=== PATIENT | female | born 1955 | race Hispanic/Latino ===

== ENCOUNTER 2017-11-03 14:54 | Emergency (ER) | payer MEDICARE, OTHER ==
[~2017-11-03] VITALS: Ht 167.6 cm; Wt 108.9 kg
[2017-11-03 17:13] LABS: CLARITY,URINE CLEAR (CLEAR); COLOR,URINE YELLOW (YELLOW); LEUKOCYTE ESTERASE ,URINE NEGATIVE (NEGATIVE)
[2017-11-03 17:14] LABS: BILIRUBIN,URINE NEGATIVE (NEGATIVE); KETONES,URINE NEGATIVE (NEGATIVE); NITRITE,URINE NEGATIVE (NEGATIVE); PROTEIN,URINE DIPSTICK NEGATIVE (NEGATIVE); URINE UROBILINOGEN 0.2 mg/dL (0.2 - 1)
[2017-11-03 17:23] LABS: BACTERIA,URINE RARE /HPF; EPITHELIAL CELLS,URINE FEW /LPF
[2017-11-03 17:51] LABS: BASOPHILS # (AUTO) 0.1 (0.0-0.1); BASOPHILS % 1.8 % (0.0-1.0); EOSINOPHILS # (AUTO) 0.2 (0.0-0.4); EOSINOPHILS % 3.3 % (0.0-6.0); HEMATOCRIT 34.5 % (34.2-44.1); HEMOGLOBIN 11.3 g/dL (12.0-16.0); LYMPHOCYTES # (AUTO) 1.9 (1.0-3.2); LYMPHOCYTES % 29.2 % (18.0-39.1); MEAN CORPUSCULAR HEMOGLOBIN 29.4 pg (28-32); MEAN CORPUSCULAR HGB CONC 32.8 g/dL (31-35); MEAN CORPUSCULAR VOLUME 89.8 fL (81-99); MONOCYTES # (AUTO) 0.7 (0.2-0.8); MONOCYTES % 10.7 % (4.4-11.3); NEUTROPHILS # (AUTO) 3.6 (2.1-6.9); NEUTROPHILS % 54.5 % (38.7-80.0); PLATELET COUNT 282 x10e3/uL (140-360); RED BLOOD COUNT 3.84 x10e6/uL (3.6-5.1); RED CELL DISTRIBUTION WIDTH 14.1 % (11.7-14.4)
[2017-11-03 18:08] LABS: ALANINE AMINOTRANSFERASE 8 IU/L (0-55); ALBUMIN 3.2 g/dL (3.5-5.0); ALBUMIN/GLOBULIN RATIO 0.6 (0.8-2.0); ALKALINE PHOSPHATASE 83 IU/L (40-150); ANION GAP 17.1 mmol/L (8-16); BLOOD UREA NITROGEN 16 mg/dL (7-26); BUN/CREATININE RATIO 19 (6-25); CALCIUM 9.7 mg/dL (8.4-10.2); CARBON DIOXIDE 28 mmol/L (22-29); CHLORIDE 103 mmol/L (98-107); CREATININE, SERUM 0.85 mg/dL (0.57-1.11); EST GLOMERULAR FILTRATION RATE > 60 ML/MIN (60-); GLUCOSE 141 mg/dL (74-118); POTASSIUM 4.1 mmol/L (3.5-5.1); SODIUM 144 mmol/L (136-145)
--- NOTE | 2017-11-03 18:15 | Diagnostic Imaging Report ---
Examination: Single AP view of the chest. COMPARISON: None. INDICATION: Vaginal discharge, cough IMPRESSION: 1. Lines and Tubes: None 2. Mild bilateral interstitial opacities suggesting mild interstitial edema. No consolidation or effusion.. 3. Enlarged cardiac silhouette. Central pulmonary venous congestion. 4. No acute bony abnormalities. Signed by: Dr. Cecil Osborn M.D. on 11/03/2017 6:12 PM
[2017-11-03] MEDS: FUROSEMIDE INJ 10 MG/ML 2 ML VIAL IV ONE (19:39)
[2017-11-03] MEDS: FLUCONAZOLE 100 MG TAB PO ONE (19:39)
[2017-11-03 20:00] VITALS: BP 145/61
== END 2017-11-03 20:07 | disposition home or self-care (01) ==
LOC: ER 14:54
DX: I50.22 Chronic systolic (congestive) heart failure (principal); N89.8 Other specified noninflammatory disorders of vagina
CPT/HCPCS: 36415; 71045; 80053; 81001; 83880; 85025; 87086; 99284; J1940

== ENCOUNTER 2020-07-12 19:00 | Observation (INO) | payer MEDICARE, OTHER ==
[~2020-07-12] VITALS: Ht 167.6 cm; Wt 108.9 kg
[2020-07-12] MEDS ORDERED: ASPIRIN 81 MG CHEW TAB PO ONE (19:15)
[2020-07-12 19:57] LABS: BASOPHILS # (AUTO) 0.1 (0.0-0.1); BASOPHILS % 0.7 % (0.0-1.0); EOSINOPHILS # (AUTO) 0.1 (0.0-0.4); HEMATOCRIT 30.5 % (34.2-44.1); HEMOGLOBIN 9.6 g/dL (12.0-16.0); LYMPHOCYTES # (AUTO) 2.1 (1.0-3.2); LYMPHOCYTES % 22.7 % (18.0-39.1); MEAN CORPUSCULAR HEMOGLOBIN 27.6 pg (28-32); MEAN CORPUSCULAR HGB CONC 31.5 g/dL (31-35); MEAN CORPUSCULAR VOLUME 87.6 fL (81-99); MONOCYTES # (AUTO) 0.8 (0.2-0.8); MONOCYTES % 8.4 % (4.4-11.3); NEUTROPHILS # (AUTO) 6.1 (2.1-6.9); NEUTROPHILS % 66.8 % (38.7-80.0); PLATELET COUNT 282 x10e3/uL (140-360); RED BLOOD COUNT 3.48 x10e6/uL (3.6-5.1); RED CELL DISTRIBUTION WIDTH 14.8 % (11.7-14.4)
[2020-07-12 20:00] LABS: CLARITY,URINE SL CLOUDY (CLEAR); COLOR,URINE YELLOW (YELLOW)
[2020-07-12 20:01] LABS: KETONES,URINE NEGATIVE (NEGATIVE); LEUKOCYTE ESTERASE ,URINE SMALL (NEGATIVE); NITRITE,URINE POSITIVE (NEGATIVE); PROTEIN,URINE DIPSTICK 1+ (NEGATIVE); URINE UROBILINOGEN 0.2 mg/dL (0.2 - 1)
[2020-07-12 20:10] LABS: BACTERIA,URINE MANY /HPF
[2020-07-12 20:16] LABS: ALBUMIN/GLOBULIN RATIO 0.5 (0.8-2.0); ANION GAP 15.3 mmol/L (8-16); CALCIUM 8.9 mg/dL (8.4-10.2); CREATININE, SERUM 0.98 mg/dL (0.57-1.11); POTASSIUM 3.3 mmol/L (3.5-5.1)
[2020-07-12 20:22] LABS: CREATINE KINASE MB 0.4 ng/mL (0-5.0)
[2020-07-12 23:20] VITALS: BP 138/55
[2020-07-12 23:30] VITALS: BP 138/55
[2020-07-12] MEDS ORDERED: SPIRONOLACTONE50 MG (23:52)
[2020-07-13] VITALS (8 sets, daily range): BP systolic 128–148; BP diastolic 48–85
[2020-07-13] MEDS ORDERED: DOXYCYCLINE HY100 MG (01:21)
[2020-07-13] MEDS ORDERED: LEVEMIR FL100 UNIT/1 (01:21)
[2020-07-13] MEDS ORDERED: LEVOCETIRIZINE D5 MG (01:21)
[2020-07-13] MEDS ORDERED: PREGABALIN75 MG (01:21)
[2020-07-13] MEDS ORDERED: AMLODIPINE BESYL5 MG (01:21)
[2020-07-13] MEDS ORDERED: INSULIN LI100 UNIT/2 (01:21)
[2020-07-13] MEDS ORDERED: NOVOLOG100 UNITS1 (01:21)
[2020-07-13] MEDS ORDERED: FUROSEMIDE40 MG (01:21)
[2020-07-13 06:32] LABS: BASOPHILS # (AUTO) 0.1 (0.0-0.1); EOSINOPHILS # (AUTO) 0.2 (0.0-0.4); EOSINOPHILS % 2.7 % (0.0-6.0); HEMATOCRIT 30.8 % (34.2-44.1); HEMOGLOBIN 9.8 g/dL (12.0-16.0); LYMPHOCYTES # (AUTO) 1.4 (1.0-3.2); LYMPHOCYTES % 23.7 % (18.0-39.1); MEAN CORPUSCULAR HEMOGLOBIN 27.6 pg (28-32); MEAN CORPUSCULAR HGB CONC 31.8 g/dL (31-35); MEAN CORPUSCULAR VOLUME 86.8 fL (81-99); MONOCYTES # (AUTO) 0.4 (0.2-0.8); MONOCYTES % 7.4 % (4.4-11.3); NEUTROPHILS # (AUTO) 3.9 (2.1-6.9); NEUTROPHILS % 64.9 % (38.7-80.0); PLATELET COUNT 249 x10e3/uL (140-360); RED BLOOD COUNT 3.55 x10e6/uL (3.6-5.1); RED CELL DISTRIBUTION WIDTH 14.6 % (11.7-14.4)
[2020-07-13 07:12] LABS: ANION GAP 12.1 mmol/L (8-16); BLOOD UREA NITROGEN 13 mg/dL (7-26); BUN/CREATININE RATIO 15 (6-25); CALCIUM 8.6 mg/dL (8.4-10.2); CARBON DIOXIDE 27 mmol/L (22-29); CHLORIDE 105 mmol/L (98-107); CREATININE, SERUM 0.89 mg/dL (0.57-1.11); EST GLOMERULAR FILTRATION RATE > 60 ML/MIN (60-); GLUCOSE 144 mg/dL (74-118); POTASSIUM 3.1 mmol/L (3.5-5.1); SODIUM 141 mmol/L (136-145)
[2020-07-13 07:42] LABS: CREATINE KINASE MB 1.2 ng/mL (0-5.0)
[2020-07-13] MEDS: FUROSEMIDE 40 MG TAB PO SCH (08:56)
[2020-07-13] MEDS: AMLODIPINE BESYLATE 5 MG TAB PO SCH (08:56)
[2020-07-13] MEDS: PREGABALIN 50 MG CAP PO SCH ×2 (08:58→16:26)
[2020-07-13] MEDS ORDERED: DEXTROSE 50% SYRINGE 50 ML IV PRN (09:45)
[2020-07-13] MEDS: LISINOPRIL 10 MG TAB PO SCH (10:20)
[2020-07-13] MEDS: ASPIRIN 81 MG CHEW TAB PO SCH (10:22)
[2020-07-13] MEDS ORDERED: POTASSIUM CHLORIDE 20 MEQ TAB CR PO ONE (10:45)
[2020-07-13] MEDS: INSULIN REGULAR, HUMAN 100 UNIT/1 ML 3ML VIAL SQ SCH ×3 (11:30→20:40)
[2020-07-13 13:02] LABS: CREATINE KINASE MB 1.6 ng/mL (0-5.0)
[2020-07-13 19:28] LABS: ANION GAP 13.6 mmol/L (8-16); BLOOD UREA NITROGEN 13 mg/dL (7-26); BUN/CREATININE RATIO 15 (6-25); CALCIUM 8.6 mg/dL (8.4-10.2); CARBON DIOXIDE 28 mmol/L (22-29); CHLORIDE 104 mmol/L (98-107); CREATININE, SERUM 0.85 mg/dL (0.57-1.11); EST GLOMERULAR FILTRATION RATE > 60 ML/MIN (60-); GLUCOSE 138 mg/dL (74-118); POTASSIUM 3.6 mmol/L (3.5-5.1); SODIUM 142 mmol/L (136-145)
[2020-07-13 19:35] LABS: CREATINE KINASE MB 1.6 ng/mL (0-5.0)
[2020-07-13] MEDS ORDERED: ATORVASTATIN 40 MG TAB PO SCH (21:00)
[2020-07-14] VITALS: BP 143/63
[2020-07-14 04:00] VITALS: BP 162/62
[2020-07-14] MEDS: INSULIN REGULAR, HUMAN 100 UNIT/1 ML 3ML VIAL SQ SCH ×2 (07:30→11:30)
[2020-07-14 07:45] VITALS: BP 152/63
[2020-07-14 07:55] LABS: BASOPHILS # (AUTO) 0.1 (0.0-0.1); BASOPHILS % 1.1 % (0.0-1.0); EOSINOPHILS # (AUTO) 0.2 (0.0-0.4); EOSINOPHILS % 2.7 % (0.0-6.0); HEMATOCRIT 32.1 % (34.2-44.1); LYMPHOCYTES # (AUTO) 1.2 (1.0-3.2); LYMPHOCYTES % 19.7 % (18.0-39.1); MEAN CORPUSCULAR HEMOGLOBIN 27.2 pg (28-32); MEAN CORPUSCULAR HGB CONC 31.2 g/dL (31-35); MEAN CORPUSCULAR VOLUME 87.5 fL (81-99); MONOCYTES # (AUTO) 0.4 (0.2-0.8); MONOCYTES % 6.6 % (4.4-11.3); NEUTROPHILS # (AUTO) 4.3 (2.1-6.9); NEUTROPHILS % 69.4 % (38.7-80.0); PLATELET COUNT 238 x10e3/uL (140-360); RED BLOOD COUNT 3.67 x10e6/uL (3.6-5.1); RED CELL DISTRIBUTION WIDTH 14.8 % (11.7-14.4)
[2020-07-14 08:00] VITALS: BP 152/63
[2020-07-14] MEDS: ASPIRIN 81 MG CHEW TAB PO SCH (08:05)
[2020-07-14] MEDS: FUROSEMIDE 40 MG TAB PO SCH (08:05)
[2020-07-14] MEDS: PREGABALIN 50 MG CAP PO SCH (08:05)
[2020-07-14] MEDS: AMLODIPINE BESYLATE 5 MG TAB PO SCH (08:05)
[2020-07-14] MEDS: LISINOPRIL 10 MG TAB PO SCH (08:06)
[2020-07-14 08:09] LABS: ANION GAP 15.5 mmol/L (8-16); BLOOD UREA NITROGEN 11 mg/dL (7-26); BUN/CREATININE RATIO 14 (6-25); CALCIUM 8.6 mg/dL (8.4-10.2); CARBON DIOXIDE 26 mmol/L (22-29); CHLORIDE 106 mmol/L (98-107); EST GLOMERULAR FILTRATION RATE > 60 ML/MIN (60-); GLUCOSE 146 mg/dL (74-118); POTASSIUM 3.5 mmol/L (3.5-5.1); SODIUM 144 mmol/L (136-145)
[2020-07-14 12:00] VITALS: BP 135/51
[2020-07-14 16:00] VITALS: BP 142/53
[2020-07-15] MEDS ORDERED: KCL 20 MEQ PACKET/ ORAL SOLN PO SCH (09:00)
== END 2020-07-14 16:07 | disposition home health service (06) ==
LOC: ER 20:10 → ERHOLD 21:35 → MED/SURG3 23:30
PROVIDERS: ADMIT Internal Medicine; ATTEND Internal Medicine
DX: I11.0 Hypertensive heart disease with heart failure (principal); I69.351 Hemiplegia and hemiparesis following cerebral infarction affecting right dominant side; E11.9 Type 2 diabetes mellitus without complications; E66.01 Morbid (severe) obesity due to excess calories; Z68.38 Body mass index [BMI] 38.0-38.9, adult; G31.84 Mild cognitive impairment of uncertain or unknown etiology; I50.33 Acute on chronic diastolic (congestive) heart failure; Z20.822 Contact with and (suspected) exposure to COVID-19
CPT/HCPCS: 36415 ×3; 70450; 71045; 80048 ×2; 80053; 81001; 82550 ×2; 82553 ×2; 82948 ×3; 83605; 83735; 83880; 84484 ×2; 85025 ×3; 87040; 92526; 92610; 93005; 93306; 97110 ×2; 97139 ×2; 97162; 97530; 99251; 99284; G0378 ×3; J1817; U0002

== ENCOUNTER 2020-07-31 08:29 | Inpatient (IN) | payer MEDICARE ==
[~2020-07-31] VITALS: Ht 167.6 cm; Wt 95.3 kg
[~2020-07-31 08:29] MED LIST: AMLODIPINE BESYL5 MG; DOXYCYCLINE HY100 MG; FUROSEMIDE40 MG; INSULIN LI100 UNIT/2; LEVEMIR FL100 UNIT/1; LEVOCETIRIZINE D5 MG; NOVOLOG100 UNITS1; PREGABALIN75 MG; SPIRONOLACTONE50 MG
[2020-07-31] MEDS ORDERED: ASPIRIN 81 MG CHEW TAB PO ONE (09:30)
[2020-07-31 09:53] LABS: INR 1.06; PROTHROMBIN TIME 14.5 seconds (11.9-14.5)
[2020-07-31 10:00] LABS: ALBUMIN 3.5 g/dL (3.5-5.0); ALBUMIN/GLOBULIN RATIO 0.6 (0.8-2.0); ANION GAP 19.7 mmol/L (8-16); CALCIUM 9.8 mg/dL (8.4-10.2); CREATININE, SERUM 1.36 mg/dL (0.57-1.11); POTASSIUM 3.7 mmol/L (3.5-5.1)
[2020-07-31 10:12] LABS: BASOPHILS % 0.3 % (0.0-1.0); HEMATOCRIT 33.5 % (34.2-44.1); HEMOGLOBIN 10.5 g/dL (12.0-16.0); LYMPHOCYTES # (AUTO) 1.1 (1.0-3.2); LYMPHOCYTES % 7.3 % (18.0-39.1); MEAN CORPUSCULAR HEMOGLOBIN 27.6 pg (28-32); MEAN CORPUSCULAR HGB CONC 31.3 g/dL (31-35); MEAN CORPUSCULAR VOLUME 88.2 fL (81-99); MONOCYTES # (AUTO) 0.9 (0.2-0.8); MONOCYTES % 5.6 % (4.4-11.3); NEUTROPHILS # (AUTO) 13.2 (2.1-6.9); NEUTROPHILS % 86.3 % (38.7-80.0); PLATELET COUNT 335 x10e3/uL (140-360); RED CELL DISTRIBUTION WIDTH 14.6 % (11.7-14.4)
[2020-07-31 11:50] LABS: CLARITY,URINE CLEAR (CLEAR); COLOR,URINE YELLOW (YELLOW); LEUKOCYTE ESTERASE ,URINE NEGATIVE (NEGATIVE); NITRITE,URINE NEGATIVE (NEGATIVE); PROTEIN,URINE DIPSTICK 1+ (NEGATIVE)
[2020-07-31 11:51] LABS: KETONES,URINE NEGATIVE (NEGATIVE); URINE UROBILINOGEN 0.2 mg/dL (0.2 - 1)
[2020-07-31 12:00] LABS: RBC,URINE 0-5 /HPF (0-5); WBC,URINE (MAN) 0-5 /HPF (0-5)
[2020-07-31 12:01] LABS: BACTERIA,URINE RARE /HPF; EPITHELIAL CELLS,URINE RARE /LPF; TRANSITIONAL EPI CELLS,URINE RARE
[2020-07-31] MEDS ORDERED: NOVOLOG100 UNIT/1 SC (16:18)
[2020-07-31] MEDS ORDERED: CLOTRIMAZOLE-BE15 GM TOP (16:18)
[2020-07-31] MEDS ORDERED: ALDACTONE50 MG PO (16:18)
[2020-07-31] MEDS ORDERED: LYRICA75 MG PO (16:18)
[2020-07-31] MEDS ORDERED: LISINOPRIL2.5 MG PO (16:18)
[2020-07-31] MEDS ORDERED: POTASSIUM CHLO10 ME1 PO (16:18)
[2020-07-31] MEDS ORDERED: NIFEDIPINE ER30 M1 PO (16:18)
[2020-07-31] MEDS ORDERED: ASPIRIN81 MG PO (16:18)
[2020-07-31] MEDS ORDERED: LEVEMIR FL100 UNIT/1 SC (16:18)
[2020-07-31] MEDS ORDERED: WOMEN'S DAILY1 EACH PO (16:18)
[2020-07-31] MEDS ORDERED: BENZONATATE100 MG PO (16:18)
[2020-07-31] MEDS ORDERED: JARDIANCE10 MG PEG (16:18)
[2020-07-31] MEDS ORDERED: SERTRALINE HCL100 MG PO (16:18)
[2020-07-31] MEDS ORDERED: FLONASE ALLERG9.9 ML INH (16:18)
[2020-07-31] MEDS ORDERED: MUPIROCIN22 GM TOP (16:18)
[2020-07-31] MEDS ORDERED: METFORMIN HCL500 MG PO ×2 (16:18)
[2020-07-31] MEDS ORDERED: LEVOCETIRIZINE D5 MG PO (16:18)
[2020-07-31] MEDS ORDERED: LASIX80 MG PO (16:18)
[2020-07-31] MEDS ORDERED: AMLODIPINE BESYL5 MG PO (16:18)
[2020-07-31] MEDS ORDERED: SENNA LAX8.6 MG PO (16:18)
[2020-07-31] MEDS ORDERED: ACETAMINOPHEN325 M1 PO (16:18)
[2020-07-31] MEDS ORDERED: OMEPRAZOLE40 MG PO (16:18)
[2020-07-31] MEDS ORDERED: ATORVASTATIN CA20 MG PO (16:18)
[2020-07-31] MEDS ORDERED: FUROSEMIDE INJ 10 MG/ML 4 ML VIAL IV ONE (16:45)
[2020-07-31 17:27] VITALS: BP 150/52
[2020-07-31 18:11] VITALS: BP 150/52
[2020-07-31 20:00] VITALS: BP 158/55
[2020-07-31] MEDS ORDERED: DEXTROSE 50% SYRINGE 50 ML IV PRN (20:15)
[2020-07-31] MEDS ORDERED: FUROSEMIDE 40 MG TAB PO SCH (21:00)
[2020-07-31 21:05] LABS: ANION GAP 18.8 mmol/L (8-16); CALCIUM 10.2 mg/dL (8.4-10.2); CREATININE, SERUM 1.35 mg/dL (0.57-1.11); POTASSIUM 4.8 mmol/L (3.5-5.1)
[2020-07-31] MEDS ORDERED: SODIUM CHLORIDE 0.9% 500ML 500 ML IV ONE (21:30)
[2020-07-31 21:46] VITALS: BP 158/55
[2020-07-31] MEDS: ATORVASTATIN 40 MG TAB PO SCH (22:10)
[2020-07-31] MEDS: NIFEDIPINE CR 30 MG TAB PO SCH (22:10)
[2020-07-31] MEDS: INSULIN GLARGINE 100 UNITS/ML VIAL SQ SCH (22:10)
[2020-07-31] MEDS: INSULIN LISPRO 100 UNIT/1 ML 3ML VIAL SQ SCH (22:10)
[2020-08-01] VITALS (11 sets, daily range): BP systolic 116–154; BP diastolic 53–64
[2020-08-01] MEDS ORDERED: CALCIUM CARBONATE 500 MG CHEWABLE TABS PO ONE (02:00)
[2020-08-01 05:30] LABS: BASOPHILS # (AUTO) 0.1 (0.0-0.1); BASOPHILS % 0.5 % (0.0-1.0); EOSINOPHILS % 0.1 % (0.0-6.0); HEMATOCRIT 33.7 % (34.2-44.1); HEMOGLOBIN 10.4 g/dL (12.0-16.0); LYMPHOCYTES # (AUTO) 1.7 (1.0-3.2); MEAN CORPUSCULAR HEMOGLOBIN 26.9 pg (28-32); MEAN CORPUSCULAR HGB CONC 30.9 g/dL (31-35); MEAN CORPUSCULAR VOLUME 87.1 fL (81-99); MONOCYTES # (AUTO) 1.1 (0.2-0.8); MONOCYTES % 6.7 % (4.4-11.3); NEUTROPHILS # (AUTO) 13.9 (2.1-6.9); NEUTROPHILS % 81.9 % (38.7-80.0); PLATELET COUNT 281 x10e3/uL (140-360); RED BLOOD COUNT 3.87 x10e6/uL (3.6-5.1); RED CELL DISTRIBUTION WIDTH 14.8 % (11.7-14.4)
[2020-08-01 05:41] LABS: INR 1.18; PROTHROMBIN TIME 15.8 seconds (11.9-14.5)
[2020-08-01 05:42] LABS: PARTIAL THROMBOPLASTIN TIME 31.5 seconds (23.8-35.5)
[2020-08-01 05:49] LABS: ANION GAP 15.1 mmol/L (8-16); CALCIUM 9.3 mg/dL (8.4-10.2); CREATININE, SERUM 1.31 mg/dL (0.57-1.11)
[2020-08-01 05:54] LABS: POTASSIUM 3.1 mmol/L (3.5-5.1)
[2020-08-01 06:14] LABS: CHOL/HDL RATIO 4.2 (3.0-3.6)
[2020-08-01] MEDS: INSULIN LISPRO 100 UNIT/1 ML 3ML VIAL SQ SCH ×4 (07:30→21:02)
[2020-08-01] MEDS: PANTOPRAZOLE SOD 40 MG TABEC PO SCH (08:12)
[2020-08-01] MEDS: ASPIRIN 81 MG CHEW TAB PO SCH (08:12)
[2020-08-01] MEDS: PREGABALIN 75 MG CAP PO SCH ×2 (08:12→17:00)
[2020-08-01] MEDS: AMLODIPINE BESYLATE 5 MG TAB PO SCH ×2 (08:13→17:10)
[2020-08-01] MEDS: NIFEDIPINE CR 30 MG TAB PO SCH ×2 (08:14→21:03)
[2020-08-01] MEDS: SERTRALINE HCL 100 MG TAB PO SCH (08:14)
[2020-08-01] MEDS ORDERED: LISINOPRIL 2.5 MG TAB PO SCH (09:00)
[2020-08-01] MEDS ORDERED: CEFTRIAXONE SOD 1 GM/50 ML BAG IV SCH (14:00)
[2020-08-01] MEDS ORDERED: POTASSIUM CHLORIDE 20 MEQ TAB CR PO ONE (14:30)
[2020-08-01] MEDS ORDERED: CEFTRIAXONE SOD 1 GM in SODIUM CHLORIDE 0.9% 50ML 50 ML IV SCH (14:30)
[2020-08-01] MEDS ORDERED: SODIUM CHLORIDE 0.9% 1000ML 1,000 ML ONE (14:57)
[2020-08-01] MEDS: HEPARIN SOD (PORCINE) 5,000 UNIT/ML VIAL SC SCH ×2 (15:17→21:03)
[2020-08-01 16:08] LABS: MAGNESIUM 1.6 MG/DL (1.3-2.1)
[2020-08-01 16:10] LABS: ALBUMIN/GLOBULIN RATIO 0.5 (0.8-2.0); ANION GAP 15.6 mmol/L (8-16); CALCIUM 9.1 mg/dL (8.4-10.2); CREATININE, SERUM 1.38 mg/dL (0.57-1.11); POTASSIUM 3.6 mmol/L (3.5-5.1)
[2020-08-01 16:18] LABS: ABG HCO3 29 mmol/L (22-26); ABG PCO2 41 mmHg (35-45); ABG PH 7.44 (7.35-7.45); ABG PO2 62 mmHg (80-105); ABG TCO2 30
[2020-08-01 16:30] LABS: THYROID STIMULATING HORMONE 1.222 uIU/mL (0.350-4.940)
[2020-08-01] MEDS: SODIUM CHLORIDE 0.9% 1000ML 1,000 ML IV SCH (17:48)
[2020-08-01] MEDS: ACETYLCYSTEINE 200 MG/ML 4ML VIAL PO SCH (17:48)
[2020-08-01] MEDS: ATORVASTATIN 40 MG TAB PO SCH (20:55)
[2020-08-01] MEDS: INSULIN GLARGINE 100 UNITS/ML VIAL SQ SCH (21:03)
[2020-08-01] MEDS ORDERED: SIMETHICONE 80 MG CHEW PO PRN (21:30)
[2020-08-01] MEDS ORDERED: BISACODYL 10 MG SUPP PR ONE (21:30)
[2020-08-01] MEDS: ACETAMINOPHEN 325 MG/10 ML UDC PO PRN (21:38)
[2020-08-02] VITALS (9 sets, daily range): BP systolic 122–141; BP diastolic 44–60
[2020-08-02 05:43] LABS: BASOPHILS # (AUTO) 0.1 (0.0-0.1); BASOPHILS % 0.5 % (0.0-1.0); EOSINOPHILS # (AUTO) 0.1 (0.0-0.4); EOSINOPHILS % 0.3 % (0.0-6.0); HEMATOCRIT 31.6 % (34.2-44.1); HEMOGLOBIN 9.7 g/dL (12.0-16.0); LYMPHOCYTES # (AUTO) 1.7 (1.0-3.2); MEAN CORPUSCULAR HEMOGLOBIN 27.1 pg (28-32); MEAN CORPUSCULAR HGB CONC 30.7 g/dL (31-35); MEAN CORPUSCULAR VOLUME 88.3 fL (81-99); MONOCYTES % 5.1 % (4.4-11.3); NEUTROPHILS # (AUTO) 16.2 (2.1-6.9); NEUTROPHILS % 83.8 % (38.7-80.0); PLATELET COUNT 248 x10e3/uL (140-360); RED BLOOD COUNT 3.58 x10e6/uL (3.6-5.1); RED CELL DISTRIBUTION WIDTH 14.6 % (11.7-14.4)
[2020-08-02] MEDS: HEPARIN SOD (PORCINE) 5,000 UNIT/ML VIAL SC SCH ×3 (06:12→19:41)
[2020-08-02 06:14] LABS: ALBUMIN 2.9 g/dL (3.5-5.0); ALBUMIN/GLOBULIN RATIO 0.5 (0.8-2.0); ANION GAP 17.4 mmol/L (8-16); CREATININE, SERUM 1.33 mg/dL (0.57-1.11); MAGNESIUM 1.6 MG/DL (1.3-2.1); PHOSPHORUS 2.9 MG/DL (2.3-4.7); POTASSIUM 3.4 mmol/L (3.5-5.1)
[2020-08-02 07:24] LABS: CALCIUM IONIZED 1.2 mmol/L (1.09-1.30)
[2020-08-02] MEDS: PANTOPRAZOLE SOD 40 MG TABEC PO SCH (08:18)
[2020-08-02] MEDS: ACETYLCYSTEINE 200 MG/ML 4ML VIAL PO SCH ×2 (08:18→17:08)
[2020-08-02] MEDS: ASPIRIN 81 MG CHEW TAB PO SCH (08:20)
[2020-08-02] MEDS: PREGABALIN 75 MG CAP PO SCH ×3 (08:20→17:41)
[2020-08-02] MEDS: POLYETHYLENE GLYCOL 3350 17 GM PACK PO SCH (08:20)
[2020-08-02] MEDS: AMLODIPINE BESYLATE 5 MG TAB PO SCH ×2 (08:21→17:00)
[2020-08-02] MEDS: SERTRALINE HCL 100 MG TAB PO SCH (08:22)
[2020-08-02] MEDS: NIFEDIPINE CR 30 MG TAB PO SCH ×2 (08:22→20:39)
[2020-08-02] MEDS: CYANOCOBALAMIN 1,000 MCG TAB PO SCH (08:22)
[2020-08-02] MEDS ORDERED: ACETYLCYSTEINE 20% INHAL SOLN 30 ML VIAL PO SCH (09:00)
[2020-08-02] MEDS: INSULIN LISPRO 100 UNIT/1 ML 3ML VIAL SQ SCH ×4 (09:07→20:02)
[2020-08-02] MEDS ORDERED: POTASSIUM CHLORIDE 20 MEQ TAB CR PO ONE (10:30)
[2020-08-02] MEDS ORDERED: SODIUM CHLORIDE 0.9% 100 ML ONE (11:01)
[2020-08-02] MEDS ORDERED: IOPAMIDOL 370 MG/ML 200 ML INFUS..BTL INJ ONE (11:01)
[2020-08-02] MEDS: SODIUM CHLORIDE 0.9% 1000ML 1,000 ML IV SCH (11:08)
[2020-08-02] MEDS: CEFEPIME HCL 1GM 1 GM in SODIUM CHLORIDE 0.9% 50ML 50 ML IV SCH (13:04)
[2020-08-02] MEDS: VANCOMYCIN 750MG/NS 150ML IVPB 150 ML IV SCH ×2 (13:04→19:46)
[2020-08-02] MEDS: ACETAMINOPHEN 325 MG/10 ML UDC PO PRN (15:35)
[2020-08-02] MEDS ORDERED: MAGNESIUM SULFATE 2GM/50ML 50 ML IV ONE (15:45)
[2020-08-02] MEDS: METRONIDAZOLE 500MG/NS 100ML 100 ML IV SCH (17:07)
[2020-08-02] MEDS: ATORVASTATIN 40 MG TAB PO SCH (19:41)
[2020-08-02] MEDS: INSULIN GLARGINE 100 UNITS/ML VIAL SQ SCH (20:04)
[2020-08-02] MEDS ORDERED: ACETAMINOPHEN 1000 MG/100 ML IV PRN (20:15)
[2020-08-02] MEDS ORDERED: HYDROCODONE/APAP 5MG-325MG TAB PO ONE (20:15)
[2020-08-03] VITALS (7 sets, daily range): BP systolic 104–135; BP diastolic 45–55
[2020-08-03] MEDS: METRONIDAZOLE 500MG/NS 100ML 100 ML IV SCH ×3 (02:44→17:00)
[2020-08-03] MEDS: HEPARIN SOD (PORCINE) 5,000 UNIT/ML VIAL SC SCH (04:22)
[2020-08-03 06:30] LABS: BASOPHILS # (AUTO) 0.1 (0.0-0.1); BASOPHILS % 0.5 % (0.0-1.0); EOSINOPHILS # (AUTO) 0.1 (0.0-0.4); EOSINOPHILS % 0.6 % (0.0-6.0); HEMATOCRIT 27.6 % (34.2-44.1); HEMOGLOBIN 8.5 g/dL (12.0-16.0); LYMPHOCYTES # (AUTO) 1.4 (1.0-3.2); MEAN CORPUSCULAR HEMOGLOBIN 27.2 pg (28-32); MEAN CORPUSCULAR HGB CONC 30.8 g/dL (31-35); MEAN CORPUSCULAR VOLUME 88.2 fL (81-99); MONOCYTES # (AUTO) 0.9 (0.2-0.8); MONOCYTES % 5.8 % (4.4-11.3); NEUTROPHILS # (AUTO) 12.7 (2.1-6.9); NEUTROPHILS % 82.3 % (38.7-80.0); PLATELET COUNT 241 x10e3/uL (140-360); RED BLOOD COUNT 3.13 x10e6/uL (3.6-5.1); RED CELL DISTRIBUTION WIDTH 14.8 % (11.7-14.4)
[2020-08-03 06:50] LABS: ALBUMIN 2.4 g/dL (3.5-5.0); ALBUMIN/GLOBULIN RATIO 0.5 (0.8-2.0); ANION GAP 15.2 mmol/L (8-16); CALCIUM 8.7 mg/dL (8.4-10.2); CREATININE, SERUM 1.49 mg/dL (0.57-1.11); POTASSIUM 3.2 mmol/L (3.5-5.1)
[2020-08-03] MEDS: INSULIN LISPRO 100 UNIT/1 ML 3ML VIAL SQ SCH ×4 (08:00→21:00)
[2020-08-03] MEDS: PANTOPRAZOLE SOD 40 MG TABEC PO SCH (08:03)
[2020-08-03] MEDS: SERTRALINE HCL 100 MG TAB PO SCH (08:04)
[2020-08-03] MEDS: AMLODIPINE BESYLATE 5 MG TAB PO SCH (08:04)
[2020-08-03] MEDS: POLYETHYLENE GLYCOL 3350 17 GM PACK PO SCH (08:04)
[2020-08-03] MEDS: ASPIRIN 81 MG CHEW TAB PO SCH (08:04)
[2020-08-03] MEDS: PREGABALIN 75 MG CAP PO SCH ×2 (08:04→17:00)
[2020-08-03] MEDS: CYANOCOBALAMIN 1,000 MCG TAB PO SCH (08:04)
[2020-08-03] MEDS: ACETYLCYSTEINE 200 MG/ML 4ML VIAL PO SCH (08:10)
[2020-08-03] MEDS: NIFEDIPINE CR 30 MG TAB PO SCH ×2 (08:10→21:00)
[2020-08-03] MEDS ORDERED: TICAGRELOR 90 MG TABLET PO SCH (09:15)
[2020-08-03] MEDS: VANCOMYCIN 750MG/NS 150ML IVPB 150 ML IV SCH ×2 (09:47→21:04)
[2020-08-03] MEDS ORDERED: POTASSIUM CHLORIDE 20 MEQ TAB CR PO ONE (11:00)
[2020-08-03] MEDS: CEFEPIME HCL 1GM 1 GM in SODIUM CHLORIDE 0.9% 50ML 50 ML IV SCH (11:16)
[2020-08-03] MEDS ORDERED: SEVOFLURANE INHAL SOLN 250 ML PEN BTL ONE (13:07)
[2020-08-03] MEDS ORDERED: NEOSTIGMINE 1 MG/ML 10ML VIAL ONE (13:07)
[2020-08-03] MEDS ORDERED: PROPOFOL IV EMULSION 10 MG/ML 20 ML VIAL ONE (13:07)
[2020-08-03] MEDS ORDERED: LIDOCAINE HCL 2% JELLY 5 ML TUBE ONE (13:07)
[2020-08-03] MEDS ORDERED: ROCURONIUM BROMIDE 10 MG/ML 5ML VIAL IV ONE (13:07)
[2020-08-03] MEDS ORDERED: ONDANSETRON HCL INJ 2MG/ML 2ML 2 MG/ML VIAL ONE (13:07)
[2020-08-03] MEDS ORDERED: GLYCOPYRROLATE INJ 0.2 MG/ML VIAL ONE (13:07)
[2020-08-03] MEDS ORDERED: BUPIVACAINE 0.25% 30ML SDV ONE (13:41)
[2020-08-03] MEDS ORDERED: ACETAMINOPHEN 1000 MG/100 ML 100 ML IV ONE (16:14)
[2020-08-03] MEDS: SODIUM CHLORIDE 0.9% 1000ML 1,000 ML IV SCH (18:38)
[2020-08-03] MEDS: INSULIN GLARGINE 100 UNITS/ML VIAL SQ SCH (21:00)
[2020-08-03] MEDS: HYDROMORPHONE 1MG/1ML INJ IV PRN (21:17)
[2020-08-04] VITALS (7 sets, daily range): BP systolic 120–136; BP diastolic 46–79
[2020-08-04] MEDS: METRONIDAZOLE 500MG/NS 100ML 100 ML IV SCH ×3 (00:08→16:40)
[2020-08-04] MEDS: ACETAMINOPHEN 325 MG TAB PO PRN ×2 (01:15→21:17)
[2020-08-04 06:20] LABS: BASOPHILS # (AUTO) 0.1 (0.0-0.1); BASOPHILS % 0.6 % (0.0-1.0); EOSINOPHILS % 0.3 % (0.0-6.0); HEMATOCRIT 27.1 % (34.2-44.1); HEMOGLOBIN 8.4 g/dL (12.0-16.0); LYMPHOCYTES # (AUTO) 1.1 (1.0-3.2); LYMPHOCYTES % 9.4 % (18.0-39.1); MEAN CORPUSCULAR HEMOGLOBIN 27.4 pg (28-32); MEAN CORPUSCULAR VOLUME 88.3 fL (81-99); MONOCYTES # (AUTO) 0.6 (0.2-0.8); MONOCYTES % 5.3 % (4.4-11.3); NEUTROPHILS % 83.8 % (38.7-80.0); PLATELET COUNT 252 x10e3/uL (140-360); RED BLOOD COUNT 3.07 x10e6/uL (3.6-5.1)
[2020-08-04] MEDS: SODIUM CHLORIDE 0.9% 1000ML 1,000 ML IV SCH (06:20)
[2020-08-04 06:31] LABS: CALCIUM IONIZED 1.1 mmol/L (1.09-1.30)
[2020-08-04 06:51] LABS: ALBUMIN 2.2 g/dL (3.5-5.0); ALBUMIN/GLOBULIN RATIO 0.4 (0.8-2.0); ANION GAP 15.3 mmol/L (8-16); CALCIUM 8.4 mg/dL (8.4-10.2); CREATININE, SERUM 1.82 mg/dL (0.57-1.11); POTASSIUM 3.3 mmol/L (3.5-5.1)
[2020-08-04] MEDS: HYDROCODONE/APAP 5MG-325MG TAB PO PRN ×2 (07:15→16:40)
[2020-08-04] MEDS: INSULIN LISPRO 100 UNIT/1 ML 3ML VIAL SQ SCH ×4 (07:30→21:00)
[2020-08-04] MEDS: PANTOPRAZOLE SOD 40 MG TABEC PO SCH (09:31)
[2020-08-04] MEDS: SERTRALINE HCL 100 MG TAB PO SCH (09:32)
[2020-08-04] MEDS: PREGABALIN 75 MG CAP PO SCH ×2 (09:32→16:40)
[2020-08-04] MEDS: NIFEDIPINE CR 30 MG TAB PO SCH ×2 (09:32→21:00)
[2020-08-04] MEDS: POLYETHYLENE GLYCOL 3350 17 GM PACK PO SCH (09:32)
[2020-08-04] MEDS: VANCOMYCIN 750MG/NS 150ML IVPB 150 ML IV SCH ×2 (12:24→21:00)
[2020-08-04] MEDS ORDERED: POTASSIUM CHLORIDE 20 MEQ TAB CR PO STA (12:33)
[2020-08-04] MEDS: HYDROMORPHONE 1MG/1ML INJ IV PRN (13:01)
[2020-08-04] MEDS: CEFEPIME HCL 1GM 1 GM in SODIUM CHLORIDE 0.9% 50ML 50 ML IV SCH (13:42)
[2020-08-04] MEDS: INSULIN GLARGINE 100 UNITS/ML VIAL SQ SCH (22:34)
[2020-08-05] VITALS (7 sets, daily range): BP systolic 110–134; BP diastolic 46–56
[2020-08-05] MEDS: METRONIDAZOLE 500MG/NS 100ML 100 ML IV SCH ×3 (00:16→16:58)
[2020-08-05 06:15] LABS: BASOPHILS # (AUTO) 0.1 (0.0-0.1); BASOPHILS % 0.5 % (0.0-1.0); EOSINOPHILS # (AUTO) 0.2 (0.0-0.4); EOSINOPHILS % 2.4 % (0.0-6.0); HEMATOCRIT 26.4 % (34.2-44.1); HEMOGLOBIN 8.1 g/dL (12.0-16.0); LYMPHOCYTES # (AUTO) 1.2 (1.0-3.2); MEAN CORPUSCULAR HGB CONC 30.7 g/dL (31-35); MONOCYTES # (AUTO) 0.6 (0.2-0.8); MONOCYTES % 6.4 % (4.4-11.3); NEUTROPHILS # (AUTO) 7.6 (2.1-6.9); NEUTROPHILS % 77.6 % (38.7-80.0); PLATELET COUNT 247 x10e3/uL (140-360); RED CELL DISTRIBUTION WIDTH 15.1 % (11.7-14.4)
[2020-08-05 06:27] LABS: ALBUMIN 2.1 g/dL (3.5-5.0); ALBUMIN/GLOBULIN RATIO 0.4 (0.8-2.0); ANION GAP 16.2 mmol/L (8-16); CALCIUM 8.3 mg/dL (8.4-10.2); CREATININE, SERUM 2.31 mg/dL (0.57-1.11); POTASSIUM 3.2 mmol/L (3.5-5.1)
[2020-08-05] MEDS: PANTOPRAZOLE SOD 40 MG TABEC PO SCH (08:47)
[2020-08-05] MEDS: PREGABALIN 75 MG CAP PO SCH ×2 (08:48→16:58)
[2020-08-05] MEDS: POLYETHYLENE GLYCOL 3350 17 GM PACK PO SCH (08:48)
[2020-08-05] MEDS: SERTRALINE HCL 100 MG TAB PO SCH (08:49)
[2020-08-05] MEDS: NIFEDIPINE CR 30 MG TAB PO SCH ×2 (08:49→21:44)
[2020-08-05] MEDS: HYDROCODONE/APAP 5MG-325MG TAB PO PRN (08:50)
[2020-08-05] MEDS: INSULIN LISPRO 100 UNIT/1 ML 3ML VIAL SQ SCH ×4 (09:06→21:00)
[2020-08-05] MEDS: CEFEPIME HCL 1GM 1 GM in SODIUM CHLORIDE 0.9% 50ML 50 ML IV SCH (10:40)
[2020-08-05] MEDS ORDERED: POTASSIUM CHLORIDE 20 MEQ TAB CR PO ONE (14:30)
[2020-08-05] MEDS: INSULIN GLARGINE 100 UNITS/ML VIAL SQ SCH (21:00)
[2020-08-05] MEDS: VANCOMYCIN 750MG/NS 150ML IVPB 150 ML IV SCH (21:00)
[2020-08-05] MEDS: MIRTAZAPINE 15 MG TAB PO SCH (21:44)
[2020-08-06] VITALS (8 sets, daily range): BP systolic 115–127; BP diastolic 48–84
[2020-08-06] MEDS: METRONIDAZOLE 500MG/NS 100ML 100 ML IV SCH ×3 (01:59→17:11)
[2020-08-06 06:02] LABS: BASOPHILS # (AUTO) 0.1 (0.0-0.1); BASOPHILS % 0.7 % (0.0-1.0); EOSINOPHILS # (AUTO) 0.3 (0.0-0.4); EOSINOPHILS % 3.4 % (0.0-6.0); HEMOGLOBIN 7.5 g/dL (12.0-16.0); LYMPHOCYTES # (AUTO) 1.3 (1.0-3.2); LYMPHOCYTES % 14.5 % (18.0-39.1); MEAN CORPUSCULAR HEMOGLOBIN 26.7 pg (28-32); MEAN CORPUSCULAR HGB CONC 28.8 g/dL (31-35); MEAN CORPUSCULAR VOLUME 92.5 fL (81-99); MONOCYTES # (AUTO) 0.7 (0.2-0.8); MONOCYTES % 7.2 % (4.4-11.3); NEUTROPHILS # (AUTO) 6.5 (2.1-6.9); NEUTROPHILS % 72.8 % (38.7-80.0); PLATELET COUNT 269 x10e3/uL (140-360); RED BLOOD COUNT 2.81 x10e6/uL (3.6-5.1); RED CELL DISTRIBUTION WIDTH 15.7 % (11.7-14.4)
[2020-08-06 06:37] LABS: ALBUMIN 2.1 g/dL (3.5-5.0); ALBUMIN/GLOBULIN RATIO 0.4 (0.8-2.0); ANION GAP 14.6 mmol/L (8-16); CALCIUM 8.2 mg/dL (8.4-10.2); CREATININE, SERUM 2.21 mg/dL (0.57-1.11); POTASSIUM 3.6 mmol/L (3.5-5.1)
[2020-08-06 07:14] LABS: MAGNESIUM 1.9 MG/DL (1.3-2.1); PHOSPHORUS 3.9 MG/DL (2.3-4.7)
[2020-08-06] MEDS: INSULIN LISPRO 100 UNIT/1 ML 3ML VIAL SQ SCH ×4 (07:30→21:04)
[2020-08-06] MEDS: SERTRALINE HCL 100 MG TAB PO SCH (08:19)
[2020-08-06] MEDS: NIFEDIPINE CR 30 MG TAB PO SCH ×2 (08:19→21:01)
[2020-08-06] MEDS: POLYETHYLENE GLYCOL 3350 17 GM PACK PO SCH (08:19)
[2020-08-06] MEDS: PREGABALIN 75 MG CAP PO SCH ×2 (08:19→17:11)
[2020-08-06] MEDS: PANTOPRAZOLE SOD 40 MG TABEC PO SCH (08:20)
[2020-08-06] MEDS: CEFEPIME HCL 1GM 1 GM in SODIUM CHLORIDE 0.9% 50ML 50 ML IV SCH (10:16)
[2020-08-06] MEDS: FUROSEMIDE INJ 10 MG/ML 4 ML VIAL IV SCH ×2 (11:55→21:01)
[2020-08-06] MEDS: TICAGRELOR 90 MG TABLET PO SCH (17:11)
[2020-08-06 18:16] LABS: B-TYPE NATRIURETIC PEPTIDE2 240.3 pg/mL (0-100)
[2020-08-06] MEDS: BISACODYL 10 MG SUPP PR SCH (21:00)
[2020-08-06] MEDS: MIRTAZAPINE 15 MG TAB PO SCH (21:01)
[2020-08-06] MEDS: INSULIN GLARGINE 100 UNITS/ML VIAL SQ SCH (21:07)
[2020-08-07] VITALS (8 sets, daily range): BP systolic 114–133; BP diastolic 47–69
[2020-08-07] MEDS: METRONIDAZOLE 500MG/NS 100ML 100 ML IV SCH ×3 (00:22→17:25)
[2020-08-07 06:01] LABS: BASOPHILS # (AUTO) 0.1 (0.0-0.1); BASOPHILS % 0.6 % (0.0-1.0); EOSINOPHILS # (AUTO) 0.3 (0.0-0.4); EOSINOPHILS % 4.1 % (0.0-6.0); HEMATOCRIT 26.6 % (34.2-44.1); LYMPHOCYTES # (AUTO) 1.3 (1.0-3.2); LYMPHOCYTES % 16.3 % (18.0-39.1); MEAN CORPUSCULAR HEMOGLOBIN 26.7 pg (28-32); MEAN CORPUSCULAR HGB CONC 30.1 g/dL (31-35); MEAN CORPUSCULAR VOLUME 88.7 fL (81-99); MONOCYTES # (AUTO) 0.5 (0.2-0.8); MONOCYTES % 6.3 % (4.4-11.3); NEUTROPHILS # (AUTO) 5.4 (2.1-6.9); NEUTROPHILS % 68.7 % (38.7-80.0); PLATELET COUNT 340 x10e3/uL (140-360); RED CELL DISTRIBUTION WIDTH 15.5 % (11.7-14.4)
[2020-08-07 06:38] LABS: ALBUMIN 2.1 g/dL (3.5-5.0); ALBUMIN/GLOBULIN RATIO 0.4 (0.8-2.0); ANION GAP 13.4 mmol/L (8-16); CALCIUM 8.3 mg/dL (8.4-10.2); CREATININE, SERUM 1.73 mg/dL (0.57-1.11); POTASSIUM 3.4 mmol/L (3.5-5.1)
[2020-08-07] MEDS: INSULIN LISPRO 100 UNIT/1 ML 3ML VIAL SQ SCH ×4 (07:30→21:00)
[2020-08-07] MEDS: BISACODYL 10 MG SUPP PR SCH (08:00)
[2020-08-07] MEDS: POLYETHYLENE GLYCOL 3350 17 GM PACK PO SCH (09:00)
[2020-08-07] MEDS: PREGABALIN 75 MG CAP PO SCH ×2 (09:17→17:25)
[2020-08-07] MEDS: PANTOPRAZOLE SOD 40 MG TABEC PO SCH (09:17)
[2020-08-07] MEDS: TICAGRELOR 90 MG TABLET PO SCH ×2 (09:17→17:25)
[2020-08-07] MEDS: SERTRALINE HCL 100 MG TAB PO SCH (09:17)
[2020-08-07] MEDS: NIFEDIPINE CR 30 MG TAB PO SCH (09:17)
[2020-08-07] MEDS: CYANOCOBALAMIN INJ 1,000 MCG/ML VIAL IM SCH (09:17)
[2020-08-07] MEDS: ASPIRIN 81 MG CHEW TAB PO SCH (09:17)
[2020-08-07] MEDS: FUROSEMIDE INJ 10 MG/ML 4 ML VIAL IV SCH ×2 (09:17→21:00)
[2020-08-07] MEDS ORDERED: POTASSIUM CHLORIDE 20 MEQ TAB CR PO NR ×2 (10:01→13:00)
[2020-08-07] MEDS ORDERED: OYST-CAL-D 500MG TABLET PO NR ×2 (10:30→13:00)
[2020-08-07] MEDS: CEFEPIME HCL 1GM 1 GM in SODIUM CHLORIDE 0.9% 50ML 50 ML IV SCH (11:02)
[2020-08-07] MEDS: EPOETIN ALFA-EPBX 10,000 UNIT/ML VIAL SC SCH (17:25)
[2020-08-07] MEDS: INSULIN GLARGINE 100 UNITS/ML VIAL SQ SCH (21:00)
[2020-08-07] MEDS: MIRTAZAPINE 15 MG TAB PO SCH (21:00)
[2020-08-08] MEDS: NIFEDIPINE CR 30 MG TAB PO SCH ×3 (00:06→21:00)
[2020-08-08] MEDS: METRONIDAZOLE 500MG/NS 100ML 100 ML IV SCH ×3 (01:47→17:05)
[2020-08-08 06:18] LABS: BASOPHILS # (AUTO) 0.1 (0.0-0.1); BASOPHILS % 0.6 % (0.0-1.0); EOSINOPHILS # (AUTO) 0.3 (0.0-0.4); EOSINOPHILS % 4.1 % (0.0-6.0); HEMATOCRIT 24.7 % (34.2-44.1); HEMOGLOBIN 7.6 g/dL (12.0-16.0); LYMPHOCYTES # (AUTO) 1.4 (1.0-3.2); LYMPHOCYTES % 18.6 % (18.0-39.1); MEAN CORPUSCULAR HGB CONC 30.8 g/dL (31-35); MEAN CORPUSCULAR VOLUME 87.9 fL (81-99); MONOCYTES # (AUTO) 0.6 (0.2-0.8); MONOCYTES % 7.2 % (4.4-11.3); NEUTROPHILS % 65.2 % (38.7-80.0); PLATELET COUNT 383 x10e3/uL (140-360); RED BLOOD COUNT 2.81 x10e6/uL (3.6-5.1); RED CELL DISTRIBUTION WIDTH 15.5 % (11.7-14.4)
[2020-08-08 06:41] LABS: ALBUMIN/GLOBULIN RATIO 0.4 (0.8-2.0); ANION GAP 13.3 mmol/L (8-16); CALCIUM 8.3 mg/dL (8.4-10.2); CREATININE, SERUM 1.25 mg/dL (0.57-1.11); POTASSIUM 3.3 mmol/L (3.5-5.1)
[2020-08-08] MEDS: INSULIN LISPRO 100 UNIT/1 ML 3ML VIAL SQ SCH ×4 (07:30→21:00)
[2020-08-08] MEDS ORDERED: POTASSIUM CHLORIDE 20 MEQ TAB CR PO ONE (07:45)
[2020-08-08 07:57] VITALS: BP 121/47
[2020-08-08] MEDS ORDERED: CALCIUM GLUCONATE 10% INJ 4.65 MEQ in SODIUM CHLORIDE 0.9% 50ML 50 ML IV ONE (08:00)
[2020-08-08] MEDS: CYANOCOBALAMIN INJ 1,000 MCG/ML VIAL IM SCH (09:00)
[2020-08-08] MEDS: FUROSEMIDE INJ 10 MG/ML 4 ML VIAL IV SCH ×2 (09:00→21:00)
[2020-08-08] MEDS: POLYETHYLENE GLYCOL 3350 17 GM PACK PO SCH (09:00)
[2020-08-08] MEDS: PANTOPRAZOLE SOD 40 MG TABEC PO SCH (09:10)
[2020-08-08] MEDS: TICAGRELOR 90 MG TABLET PO SCH ×2 (09:10→17:05)
[2020-08-08] MEDS: SERTRALINE HCL 100 MG TAB PO SCH (09:10)
[2020-08-08] MEDS: ASPIRIN 81 MG CHEW TAB PO SCH (09:10)
[2020-08-08 09:35] VITALS: BP 121/47
[2020-08-08 11:12] VITALS: BP 118/46
[2020-08-08] MEDS: CEFEPIME HCL 1GM 1 GM in SODIUM CHLORIDE 0.9% 50ML 50 ML IV SCH (12:30)
[2020-08-08 15:20] VITALS: BP 123/54
[2020-08-08] MEDS: HYDROCODONE/APAP 5MG-325MG TAB PO PRN (19:57)
[2020-08-08 20:00] VITALS: BP 120/54
[2020-08-08] MEDS: INSULIN GLARGINE 100 UNITS/ML VIAL SQ SCH (21:00)
[2020-08-08] MEDS: MIRTAZAPINE 15 MG TAB PO SCH (21:00)
[2020-08-09] VITALS (9 sets, daily range): BP systolic 121–156; BP diastolic 44–65
[2020-08-09] MEDS: METRONIDAZOLE 500MG/NS 100ML 100 ML IV SCH ×3 (00:34→17:17)
[2020-08-09 05:50] LABS: BASOPHILS # (AUTO) 0.1 (0.0-0.1); BASOPHILS % 0.9 % (0.0-1.0); EOSINOPHILS # (AUTO) 0.4 (0.0-0.4); EOSINOPHILS % 3.7 % (0.0-6.0); HEMOGLOBIN 8.1 g/dL (12.0-16.0); LYMPHOCYTES # (AUTO) 1.9 (1.0-3.2); LYMPHOCYTES % 19.7 % (18.0-39.1); MONOCYTES # (AUTO) 0.6 (0.2-0.8); MONOCYTES % 6.2 % (4.4-11.3); NEUTROPHILS # (AUTO) 6.3 (2.1-6.9); NEUTROPHILS % 64.9 % (38.7-80.0); PLATELET COUNT 430 x10e3/uL (140-360); RED CELL DISTRIBUTION WIDTH 15.9 % (11.7-14.4)
[2020-08-09 06:35] LABS: CALCIUM IONIZED 1.2 mmol/L (1.09-1.30)
[2020-08-09 06:53] LABS: ALBUMIN 2.1 g/dL (3.5-5.0); ALBUMIN/GLOBULIN RATIO 0.4 (0.8-2.0); ANION GAP 11.8 mmol/L (8-16); CALCIUM 8.4 mg/dL (8.4-10.2); CREATININE, SERUM 1.06 mg/dL (0.57-1.11); POTASSIUM 3.8 mmol/L (3.5-5.1)
[2020-08-09 07:04] LABS: MAGNESIUM 1.6 MG/DL (1.3-2.1)
[2020-08-09] MEDS: INSULIN LISPRO 100 UNIT/1 ML 3ML VIAL SQ SCH ×4 (07:30→21:00)
[2020-08-09] MEDS: POLYETHYLENE GLYCOL 3350 17 GM PACK PO SCH (09:00)
[2020-08-09] MEDS: PANTOPRAZOLE SOD 40 MG TABEC PO SCH (09:39)
[2020-08-09] MEDS: TICAGRELOR 90 MG TABLET PO SCH ×2 (09:41→17:17)
[2020-08-09] MEDS: ASPIRIN 81 MG CHEW TAB PO SCH (09:41)
[2020-08-09] MEDS: NIFEDIPINE CR 30 MG TAB PO SCH ×2 (09:42→21:00)
[2020-08-09] MEDS: SERTRALINE HCL 100 MG TAB PO SCH (09:42)
[2020-08-09] MEDS: FUROSEMIDE INJ 10 MG/ML 4 ML VIAL IV SCH ×2 (10:05→21:00)
[2020-08-09] MEDS: CYANOCOBALAMIN INJ 1,000 MCG/ML VIAL IM SCH (10:05)
[2020-08-09] MEDS: BALSAM PERU/CASTOR OIL 60 GM OINT...G. TP SCH (10:06)
[2020-08-09 11:11] LABS: ALPHA 2 GLOBULIN URINE PEP 12.6 % (.)
[2020-08-09] MEDS ORDERED: MAGNESIUM OXIDE 400 MG TAB PO ONE (11:15)
[2020-08-09] MEDS: CEFEPIME HCL 1GM 1 GM in SODIUM CHLORIDE 0.9% 50ML 50 ML IV SCH (11:17)
[2020-08-09] MEDS: EPOETIN ALFA-EPBX 10,000 UNIT/ML VIAL SC SCH (17:22)
[2020-08-09] MEDS: INSULIN GLARGINE 100 UNITS/ML VIAL SQ SCH (21:00)
[2020-08-10] MEDS: METRONIDAZOLE 500MG/NS 100ML 100 ML IV SCH ×2 (02:13→08:47)
[2020-08-10 04:20] VITALS: BP 122/44
[2020-08-10 06:26] LABS: ANION GAP 10.3 mmol/L (8-16); BLOOD UREA NITROGEN 20 mg/dL (7-26); BUN/CREATININE RATIO 22 (6-25); CARBON DIOXIDE 21 mmol/L (22-29); CHLORIDE 117 mmol/L (98-107); CREATININE, SERUM 0.93 mg/dL (0.57-1.11); EST GLOMERULAR FILTRATION RATE > 60 ML/MIN (60-); GLUCOSE 132 mg/dL (74-118); MAGNESIUM 1.5 MG/DL (1.3-2.1); POTASSIUM 3.3 mmol/L (3.5-5.1); SODIUM 145 mmol/L (136-145)
[2020-08-10 08:00] VITALS: BP 126/44
[2020-08-10] MEDS: INSULIN LISPRO 100 UNIT/1 ML 3ML VIAL SQ SCH ×2 (08:18→13:11)
[2020-08-10] MEDS: PANTOPRAZOLE SOD 40 MG TABEC PO SCH (08:45)
[2020-08-10 08:47] VITALS: BP 126/44
[2020-08-10] MEDS: FUROSEMIDE INJ 10 MG/ML 4 ML VIAL IV SCH (08:47)
[2020-08-10] MEDS: CYANOCOBALAMIN INJ 1,000 MCG/ML VIAL IM SCH (08:47)
[2020-08-10] MEDS: TICAGRELOR 90 MG TABLET PO SCH (08:48)
[2020-08-10] MEDS: ASPIRIN 81 MG CHEW TAB PO SCH (08:48)
[2020-08-10] MEDS: POLYETHYLENE GLYCOL 3350 17 GM PACK PO SCH (08:48)
[2020-08-10] MEDS: SERTRALINE HCL 100 MG TAB PO SCH (08:49)
[2020-08-10] MEDS: BALSAM PERU/CASTOR OIL 60 GM OINT...G. TP SCH (08:49)
[2020-08-10] MEDS: NIFEDIPINE CR 30 MG TAB PO SCH (08:49)
[2020-08-10] MEDS ORDERED: MAGNESIUM OXIDE 400 MG TAB PO NR ×2 (09:15→13:15)
[2020-08-10] MEDS ORDERED: POTASSIUM CHLORIDE 20 MEQ TAB CR PO NR ×2 (09:15→13:15)
[2020-08-10] MEDS ORDERED: PHOSPHORUS 250 MG TAB PO NR ×2 (11:00→13:15)
[2020-08-10] MEDS ORDERED: PREDNISONE 20 MG TAB PO SCH (11:00)
[2020-08-10] MEDS ORDERED: Insulin Lispro SQ (11:18)
[2020-08-10] MEDS ORDERED: SIMETHICONE80 MG PO (11:18)
[2020-08-10] MEDS ORDERED: Insulin Glargine SQ (11:18)
[2020-08-10] MEDS ORDERED: BRILINTA90 MG PO (11:18)
[2020-08-10] MEDS ORDERED: ASPIRIN CHEW81 MG PO (11:18)
[2020-08-10] MEDS ORDERED: Cyanocobalamin Inj IM (11:18)
[2020-08-10] MEDS ORDERED: FUROSEMIDE10 MG/1 M1 IV (11:18)
[2020-08-10] MEDS ORDERED: MIRALAX17 GM PO (11:18)
[2020-08-10] MEDS ORDERED: VENELEX OINTMEN60 GM TP (11:18)
[2020-08-10] MEDS ORDERED: PREDNISONE20 MG PO (11:18)
[2020-08-10] MEDS: CEFEPIME HCL 1GM 1 GM in SODIUM CHLORIDE 0.9% 50ML 50 ML IV SCH (11:39)
[2020-08-10 12:39] VITALS: BP 118/47
== END 2020-08-10 14:32 | DRG 853 ==
LOC: ER 08:44 → ERHOLD 12:10 → MED/SURG 16:26
PROVIDERS: ADMIT Internal Medicine; ATTEND Internal Medicine
PROC: 0FT44ZZ Resection of Gallbladder, Percutaneous Endoscopic Approach (ICD-10-PCS; principal; 2020-08-03 12:30)
DX: A41.9 Sepsis, unspecified organism (principal); G92 Toxic encephalopathy; I50.33 Acute on chronic diastolic (congestive) heart failure; K80.00 Calculus of gallbladder with acute cholecystitis without obstruction; N17.9 Acute kidney failure, unspecified; I69.351 Hemiplegia and hemiparesis following cerebral infarction affecting right dominant side; I50.32 Chronic diastolic (congestive) heart failure; N39.0 Urinary tract infection, site not specified; K56.7 Ileus, unspecified; M33.90 Dermatopolymyositis, unspecified, organ involvement unspecified; I11.0 Hypertensive heart disease with heart failure; E11.9 Type 2 diabetes mellitus without complications; E78.5 Hyperlipidemia, unspecified; K82.A1 Gangrene of gallbladder in cholecystitis; I69.320 Aphasia following cerebral infarction; I25.10 Atherosclerotic heart disease of native coronary artery without angina pectoris; Z88.8 Allergy status to other drugs, medicaments and biological substances; K82.8 Other specified diseases of gallbladder; E87.6 Hypokalemia; Z79.82 Long term (current) use of aspirin; Z79.4 Long term (current) use of insulin; I65.22 Occlusion and stenosis of left carotid artery; D64.9 Anemia, unspecified; R33.9 Retention of urine, unspecified; M79.7 Fibromyalgia; Z20.822 Contact with and (suspected) exposure to COVID-19
CPT/HCPCS: 36415; 36600; 51700; 70450; 70496; 70498; 70551; 71045; 74018; 74177; 76705; 76770; 80048; 80053; 80061; 80202; 81001; 82040; 82140; 82607; 82746; 82805; 82948; 83735; 83880; 83930; 84100; 84165; 84166; 84443; 84484; 85025; 85610; 85651; 85730; 86039; 86140; 86160; 86225; 86340; 86850; 86900; 86920; 87040; 87086; 88304; 93005; 93306; 93970; 93971; 97139; 99251; 99284; C1766; J0610; J0692; J0696; J1170; J1644; J1815; J1940; J2001; J2405; J2710; J3420; J3475; J7030; J7040; J7050; J7512; Q9967; U0002

== ENCOUNTER 2020-09-22 11:48 | Inpatient (IN) | payer MEDICARE ==
[~2020-09-22] VITALS: Ht 167.6 cm; Wt 95.8 kg
[~2020-09-22 11:48] MED LIST changes: +ACETAMINOPHEN325 M1 PO; +ALDACTONE50 MG PO; +AMLODIPINE BESYL5 MG PO; +ASPIRIN CHEW81 MG PO; +ASPIRIN81 MG PO; +ATORVASTATIN CA20 MG PO; +BENZONATATE100 MG PO; +BRILINTA90 MG PO; +CLOTRIMAZOLE-BE15 GM TOP; +Cyanocobalamin Inj IM; +FLONASE ALLERG9.9 ML INH; +FUROSEMIDE10 MG/1 M1 IV; +Insulin Glargine SQ; +Insulin Lispro SQ; +JARDIANCE10 MG PEG; +LASIX80 MG PO; +LEVEMIR FL100 UNIT/1 SC; +LEVOCETIRIZINE D5 MG PO; +LISINOPRIL2.5 MG PO; +LYRICA75 MG PO; +METFORMIN HCL500 MG PO; +MIRALAX17 GM PO; +MUPIROCIN22 GM TOP; +NIFEDIPINE ER30 M1 PO; +NOVOLOG100 UNIT/1 SC; +OMEPRAZOLE40 MG PO; +POTASSIUM CHLO10 ME1 PO; +PREDNISONE20 MG PO; +SENNA LAX8.6 MG PO; +SERTRALINE HCL100 MG PO; +SIMETHICONE80 MG PO; +VENELEX OINTMEN60 GM TP; +WOMEN'S DAILY1 EACH PO
[2020-09-22] MEDS ORDERED: PANTOPRAZOLE 40 MG 10ML VIAL IV NR (12:30)
[2020-09-22] MEDS ORDERED: SODIUM CHLORIDE 0.9% 500ML 500 ML IV ONE (12:30)
[2020-09-22] MEDS ORDERED: ONDANSETRON HCL INJ 2MG/ML 2ML 2 MG/ML VIAL IV NR (12:30)
[2020-09-22 12:46] LABS: BASOPHILS # (AUTO) 0.1 (0.0-0.1); EOSINOPHILS # (AUTO) 0.1 (0.0-0.4); EOSINOPHILS % 1.4 % (0.0-6.0); HEMATOCRIT 26.7 % (34.2-44.1); HEMOGLOBIN 8.4 g/dL (12.0-16.0); LYMPHOCYTES # (AUTO) 1.8 (1.0-3.2); LYMPHOCYTES % 24.1 % (18.0-39.1); MEAN CORPUSCULAR HGB CONC 31.5 g/dL (31-35); MEAN CORPUSCULAR VOLUME 85.9 fL (81-99); MONOCYTES # (AUTO) 0.6 (0.2-0.8); MONOCYTES % 8.2 % (4.4-11.3); NEUTROPHILS # (AUTO) 4.7 (2.1-6.9); NEUTROPHILS % 64.9 % (38.7-80.0); PLATELET COUNT 123 x10e3/uL (140-360); RED BLOOD COUNT 3.11 x10e6/uL (3.6-5.1); RED CELL DISTRIBUTION WIDTH 15.9 % (11.7-14.4)
[2020-09-22 12:58] LABS: CLARITY,URINE CLEAR (CLEAR); COLOR,URINE YELLOW (YELLOW); KETONES,URINE TRACE (NEGATIVE); LEUKOCYTE ESTERASE ,URINE SMALL (NEGATIVE); NITRITE,URINE NEGATIVE (NEGATIVE); PROTEIN,URINE DIPSTICK NEGATIVE (NEGATIVE)
[2020-09-22 12:59] LABS: URINE UROBILINOGEN 0.2 mg/dL (0.2 - 1)
[2020-09-22 13:02] LABS: INR 1.09; PROTHROMBIN TIME 14.7 seconds (11.9-14.5)
[2020-09-22 13:03] LABS: PARTIAL THROMBOPLASTIN TIME 32.9 seconds (23.8-35.5)
[2020-09-22 13:09] LABS: BACTERIA,URINE RARE /HPF
[2020-09-22 13:10] LABS: EPITHELIAL CELLS,URINE FEW /LPF
[2020-09-22 16:04] LABS: ALBUMIN 2.4 g/dL (3.5-5.0); ALBUMIN/GLOBULIN RATIO 0.4 (0.8-2.0); ANION GAP 16.9 mmol/L (8-16); CREATININE, SERUM 1.32 mg/dL (0.57-1.11); MAGNESIUM 1.9 MG/DL (1.3-2.1); POTASSIUM 3.9 mmol/L (3.5-5.1)
[2020-09-22 16:08] LABS: CALCIUM 9.4 mg/dL (8.4-10.2)
[2020-09-22 16:24] LABS: CREATINE KINASE MB 0.6 ng/mL (0-5.0); THYROID STIMULATING HORMONE 3.698 uIU/mL (0.350-4.940)
[2020-09-22] MEDS ORDERED: SODIUM CHLORIDE 0.9% 50ML 50 ML ONE (16:26)
[2020-09-22] MEDS ORDERED: IOPAMIDOL 370 MG/ML 200 ML INFUS..BTL INJ ONE (16:26)
[2020-09-22] MEDS ORDERED: VANCOMYCIN 1GM/NS 250 ML 250 ML IV ONE (17:00)
[2020-09-22] MEDS: PIPERACILLIN/TAZOBAC 3.375 GM in SODIUM CHLORIDE 0.9% 50ML 50 ML IV SCH ×2 (17:26→23:52)
[2020-09-22] MEDS: SODIUM CHLORIDE 0.9% 1000ML 1,000 ML IV SCH (17:30)
[2020-09-22 18:44] LABS: CREATINE KINASE MB 0.5 ng/mL (0-5.0)
[2020-09-22 20:00] VITALS: BP 133/43
[2020-09-22 21:00] VITALS: BP 133/43
[2020-09-22] MEDS: FUROSEMIDE INJ 10 MG/ML 4 ML VIAL IV SCH (22:40)
[2020-09-23] VITALS (8 sets, daily range): BP systolic 116–141; BP diastolic 42–80
[2020-09-23] MEDS: SODIUM CHLORIDE 0.9% 1000ML 1,000 ML IV SCH ×3 (00:10→13:08)
[2020-09-23] MEDS: PIPERACILLIN/TAZOBAC 3.375 GM in SODIUM CHLORIDE 0.9% 50ML 50 ML IV SCH ×2 (05:11→11:49)
[2020-09-23 07:26] LABS: BASOPHILS # (AUTO) 0.1 (0.0-0.1); BASOPHILS % 1.2 % (0.0-1.0); EOSINOPHILS # (AUTO) 0.1 (0.0-0.4); HEMATOCRIT 24.3 % (34.2-44.1); HEMOGLOBIN 7.6 g/dL (12.0-16.0); LYMPHOCYTES # (AUTO) 1.6 (1.0-3.2); LYMPHOCYTES % 25.8 % (18.0-39.1); MEAN CORPUSCULAR HEMOGLOBIN 27.1 pg (28-32); MEAN CORPUSCULAR HGB CONC 31.3 g/dL (31-35); MEAN CORPUSCULAR VOLUME 86.8 fL (81-99); MONOCYTES # (AUTO) 0.6 (0.2-0.8); MONOCYTES % 9.2 % (4.4-11.3); NEUTROPHILS # (AUTO) 3.7 (2.1-6.9); NEUTROPHILS % 61.5 % (38.7-80.0); PLATELET COUNT 118 x10e3/uL (140-360); RED CELL DISTRIBUTION WIDTH 15.7 % (11.7-14.4)
[2020-09-23 07:57] LABS: CREATINE KINASE MB 0.6 ng/mL (0-5.0)
[2020-09-23 08:17] LABS: ALBUMIN 2.2 g/dL (3.5-5.0); ALBUMIN/GLOBULIN RATIO 0.4 (0.8-2.0); ANION GAP 14.6 mmol/L (8-16); CALCIUM 8.7 mg/dL (8.4-10.2); CREATININE, SERUM 1.12 mg/dL (0.57-1.11); POTASSIUM 3.6 mmol/L (3.5-5.1)
[2020-09-23 11:36] LABS: FERRITIN 290.77 ng/mL (4.63-204.00)
[2020-09-23 16:50] LABS: CREATINE KINASE MB 0.7 ng/mL (0-5.0)
[2020-09-23] MEDS ORDERED: HYDROCODON-ACE1 EA11 PO (17:01)
[2020-09-23] MEDS ORDERED: AUGMENTIN 875-1 EACH PO (17:01)
[2020-09-23] MEDS ORDERED: B-121000 MCG PO (17:01)
[2020-09-23] MEDS ORDERED: SERTRALINE HCL50 MG PO (17:16)
[2020-09-23] MEDS ORDERED: LYRICA75 MG PO (17:16)
[2020-09-23] MEDS ORDERED: XARELTO20 MG PO (17:16)
[2020-09-23] MEDS ORDERED: INSULIN LI100 UNIT/2 SC (17:16)
[2020-09-23] MEDS ORDERED: SANTYL 250 UNIT/GM TOP (17:16)
[2020-09-23] MEDS ORDERED: PANTOPRAZOLE SO40 MG PO (17:16)
[2020-09-23] MEDS ORDERED: PREDNISONE5 MG PO (17:16)
[2020-09-23] MEDS ORDERED: LEVEMIR FL100 UNIT/1 SC (17:16)
[2020-09-23] MEDS ORDERED: FUROSEMIDE40 MG PO (17:16)
[2020-09-23] MEDS ORDERED: SIMETHICONE80 MG PO (17:16)
[2020-09-23] MEDS ORDERED: ZYVOX600 MG PO (17:16)
[2020-09-23] MEDS ORDERED: HYDRALAZINE HCL25 MG PO (17:16)
[2020-09-23] MEDS ORDERED: BRILINTA90 MG PO (17:16)
[2020-09-23] MEDS ORDERED: NIFEDIPINE ER30 M1 PO (17:16)
[2020-09-23] MEDS ORDERED: POLYETHYLENE GL17 GM PO (17:16)
[2020-09-23] MEDS: VANCOMYCIN HCL 125 MG CAPSULE PO SCH (18:16)
[2020-09-23] MEDS ORDERED: HYDRALAZINE HCL 25 MG TAB PO SCH (20:00)
[2020-09-23] MEDS ORDERED: PIPER-TAZ 3.375 GM 50 ML IV SCH (20:00)
[2020-09-23] MEDS ORDERED: DEXTROSE 50% SYRINGE 50 ML IV PRN (20:00)
[2020-09-23] MEDS: HYDROCODONE/APAP 5MG-325MG TAB PO PRN (20:14)
[2020-09-23] MEDS: INSULIN LISPRO 100 UNIT/1 ML 3ML VIAL SQ SCH (21:00)
[2020-09-23] MEDS: INSULIN GLARGINE 100 UNITS/ML VIAL SQ SCH (21:00)
[2020-09-23] MEDS: PREGABALIN 75 MG CAP PO SCH (21:45)
[2020-09-24] VITALS (8 sets, daily range): BP systolic 112–153; BP diastolic 37–48
[2020-09-24] MEDS: VANCOMYCIN HCL 125 MG CAPSULE PO SCH ×4 (00:10→18:00)
[2020-09-24] MEDS: PANTOPRAZOLE 40 MG 10ML VIAL IV SCH ×2 (02:00→13:45)
[2020-09-24 05:31] LABS: BASOPHILS # (AUTO) 0.1 (0.0-0.1); EOSINOPHILS # (AUTO) 0.2 (0.0-0.4); EOSINOPHILS % 2.9 % (0.0-6.0); HEMATOCRIT 24.5 % (34.2-44.1); HEMOGLOBIN 7.5 g/dL (12.0-16.0); LYMPHOCYTES % 34.7 % (18.0-39.1); MEAN CORPUSCULAR HGB CONC 30.6 g/dL (31-35); MEAN CORPUSCULAR VOLUME 88.1 fL (81-99); MONOCYTES # (AUTO) 0.6 (0.2-0.8); MONOCYTES % 10.3 % (4.4-11.3); NEUTROPHILS % 50.9 % (38.7-80.0); PLATELET COUNT 116 x10e3/uL (140-360); RED BLOOD COUNT 2.78 x10e6/uL (3.6-5.1); RED CELL DISTRIBUTION WIDTH 15.7 % (11.7-14.4)
[2020-09-24 05:50] LABS: ALANINE AMINOTRANSFERASE 12 IU/L (0-55); ALBUMIN 2.1 g/dL (3.5-5.0); ALBUMIN/GLOBULIN RATIO 0.4 (0.8-2.0); ALKALINE PHOSPHATASE 84 IU/L (40-150); BLOOD UREA NITROGEN 16 mg/dL (7-26); BUN/CREATININE RATIO 19 (6-25); CALCIUM 8.4 mg/dL (8.4-10.2); CARBON DIOXIDE 22 mmol/L (22-29); CHLORIDE 114 mmol/L (98-107); CREATININE, SERUM 0.83 mg/dL (0.57-1.11); EST GLOMERULAR FILTRATION RATE > 60 ML/MIN (60-); GLUCOSE 80 mg/dL (74-118); SODIUM 145 mmol/L (136-145)
[2020-09-24] MEDS ORDERED: PANTOPRAZOLE SOD 40 MG TABEC PO SCH (07:30)
[2020-09-24] MEDS ORDERED: NIFEDIPINE CR 30 MG TAB PO SCH (09:00)
[2020-09-24] MEDS ORDERED: POTASSIUM CHLORIDE 20 MEQ TAB CR PO ONE ×2 (09:15→11:00)
[2020-09-24] MEDS: FUROSEMIDE INJ 10 MG/ML 4 ML VIAL IV SCH ×2 (10:25→20:34)
[2020-09-24] MEDS: PREDNISONE 5 MG TAB PO SCH (10:25)
[2020-09-24] MEDS: CYANOCOBALAMIN 1,000 MCG TAB PO SCH (10:26)
[2020-09-24] MEDS: SERTRALINE HCL 50 MG TAB PO SCH (10:26)
[2020-09-24] MEDS: PREGABALIN 75 MG CAP PO SCH ×3 (10:26→20:34)
[2020-09-24] MEDS: INSULIN LISPRO 100 UNIT/1 ML 3ML VIAL SQ SCH ×4 (10:27→21:00)
[2020-09-24] MEDS: RIVAROXABAN 20 MG TABLET PO SCH (18:47)
[2020-09-24] MEDS: PIPERACILLIN/TAZOBAC 3.375 GM in SODIUM CHLORIDE 0.9% 50ML 50 ML IV SCH (20:00)
[2020-09-24] MEDS: INSULIN GLARGINE 100 UNITS/ML VIAL SQ SCH (21:00)
[2020-09-25] VITALS (7 sets, daily range): BP systolic 102–132; BP diastolic 32–45
[2020-09-25] MEDS: PANTOPRAZOLE 40 MG 10ML VIAL IV SCH ×2 (01:45→13:33)
[2020-09-25] MEDS: VANCOMYCIN HCL 125 MG CAPSULE PO SCH ×4 (05:24→18:06)
[2020-09-25] MEDS: PIPERACILLIN/TAZOBAC 3.375 GM in SODIUM CHLORIDE 0.9% 50ML 50 ML IV SCH ×3 (05:24)
[2020-09-25 05:32] LABS: BASOPHILS # (AUTO) 0.1 (0.0-0.1); EOSINOPHILS # (AUTO) 0.2 (0.0-0.4); EOSINOPHILS % 2.6 % (0.0-6.0); HEMOGLOBIN 7.1 g/dL (12.0-16.0); LYMPHOCYTES # (AUTO) 2.3 (1.0-3.2); LYMPHOCYTES % 39.8 % (18.0-39.1); MEAN CORPUSCULAR HEMOGLOBIN 27.5 pg (28-32); MEAN CORPUSCULAR HGB CONC 31.6 g/dL (31-35); MEAN CORPUSCULAR VOLUME 87.2 fL (81-99); MONOCYTES # (AUTO) 0.7 (0.2-0.8); MONOCYTES % 12.1 % (4.4-11.3); NEUTROPHILS # (AUTO) 2.6 (2.1-6.9); NEUTROPHILS % 44.2 % (38.7-80.0); PLATELET COUNT 139 x10e3/uL (140-360); RED BLOOD COUNT 2.58 x10e6/uL (3.6-5.1); RED CELL DISTRIBUTION WIDTH 15.9 % (11.7-14.4)
[2020-09-25 05:54] LABS: ANION GAP 12.4 mmol/L (8-16); BLOOD UREA NITROGEN 11 mg/dL (7-26); BUN/CREATININE RATIO 13 (6-25); CALCIUM 8.6 mg/dL (8.4-10.2); CARBON DIOXIDE 23 mmol/L (22-29); CHLORIDE 114 mmol/L (98-107); CREATININE, SERUM 0.85 mg/dL (0.57-1.11); EST GLOMERULAR FILTRATION RATE > 60 ML/MIN (60-); GLUCOSE 108 mg/dL (74-118); MAGNESIUM 1.6 MG/DL (1.3-2.1); POTASSIUM 3.4 mmol/L (3.5-5.1); SODIUM 146 mmol/L (136-145)
[2020-09-25 06:05] LABS: HEMATOCRIT 22.5 % (34.2-44.1)
[2020-09-25] MEDS: INSULIN LISPRO 100 UNIT/1 ML 3ML VIAL SQ SCH ×4 (07:30→21:00)
[2020-09-25] MEDS: COLLAGENASE 5 GM TUBE TP SCH (10:12)
[2020-09-25] MEDS: PREGABALIN 75 MG CAP PO SCH ×3 (10:12→21:00)
[2020-09-25] MEDS: SERTRALINE HCL 50 MG TAB PO SCH (10:12)
[2020-09-25] MEDS: CYANOCOBALAMIN 1,000 MCG TAB PO SCH (10:12)
[2020-09-25] MEDS: FUROSEMIDE INJ 10 MG/ML 4 ML VIAL IV SCH (10:12)
[2020-09-25] MEDS: PREDNISONE 5 MG TAB PO SCH (10:12)
[2020-09-25] MEDS: HYDROCODONE/APAP 5MG-325MG TAB PO PRN (10:30)
[2020-09-25] MEDS: MEROPENEM 1GM 100 ML IV SCH ×2 (13:32→21:06)
[2020-09-25] MEDS ORDERED: MAGNESIUM OXIDE 400 MG TAB PO ONE (16:30)
[2020-09-25] MEDS: RIVAROXABAN 20 MG TABLET PO SCH (18:05)
[2020-09-25] MEDS ORDERED: SODIUM CHLORIDE 0.9% 50ML 50 ML ONE (18:38)
[2020-09-25] MEDS ORDERED: IOPAMIDOL 370 MG/ML 200 ML INFUS..BTL INJ ONE (18:39)
[2020-09-25] MEDS: INSULIN GLARGINE 100 UNITS/ML VIAL SQ SCH (21:00)
[2020-09-26] VITALS (9 sets, daily range): BP systolic 115–154; BP diastolic 41–66
[2020-09-26] MEDS: VANCOMYCIN HCL 125 MG CAPSULE PO SCH ×5 (00:34→23:30)
[2020-09-26] MEDS: PANTOPRAZOLE 40 MG 10ML VIAL IV SCH ×2 (01:18→14:12)
[2020-09-26 05:35] LABS: BASOPHILS # (AUTO) 0.1 (0.0-0.1); EOSINOPHILS # (AUTO) 0.2 (0.0-0.4); EOSINOPHILS % 2.8 % (0.0-6.0); LYMPHOCYTES # (AUTO) 2.3 (1.0-3.2); MEAN CORPUSCULAR HEMOGLOBIN 26.8 pg (28-32); MEAN CORPUSCULAR HGB CONC 30.6 g/dL (31-35); MEAN CORPUSCULAR VOLUME 87.7 fL (81-99); MONOCYTES % 13.3 % (4.4-11.3); NEUTROPHILS # (AUTO) 3.6 (2.1-6.9); NEUTROPHILS % 49.6 % (38.7-80.0); PLATELET COUNT 162 x10e3/uL (140-360); RED BLOOD COUNT 2.61 x10e6/uL (3.6-5.1); RED CELL DISTRIBUTION WIDTH 16.3 % (11.7-14.4)
[2020-09-26 05:42] LABS: HEMATOCRIT 22.9 % (34.2-44.1)
[2020-09-26 06:00] LABS: ALANINE AMINOTRANSFERASE 10 IU/L (0-55); ALBUMIN 2.2 g/dL (3.5-5.0); ALBUMIN/GLOBULIN RATIO 0.4 (0.8-2.0); ALKALINE PHOSPHATASE 81 IU/L (40-150); ANION GAP 14.6 mmol/L (8-16); BLOOD UREA NITROGEN 8 mg/dL (7-26); BUN/CREATININE RATIO 10 (6-25); CALCIUM 8.5 mg/dL (8.4-10.2); CARBON DIOXIDE 21 mmol/L (22-29); CHLORIDE 113 mmol/L (98-107); CREATININE, SERUM 0.83 mg/dL (0.57-1.11); EST GLOMERULAR FILTRATION RATE > 60 ML/MIN (60-); GLUCOSE 110 mg/dL (74-118); MAGNESIUM 1.6 MG/DL (1.3-2.1); POTASSIUM 3.6 mmol/L (3.5-5.1); SODIUM 145 mmol/L (136-145)
[2020-09-26] MEDS: MEROPENEM 1GM 100 ML IV SCH ×3 (06:00→21:20)
[2020-09-26] MEDS: INSULIN LISPRO 100 UNIT/1 ML 3ML VIAL SQ SCH ×4 (07:30→21:20)
[2020-09-26] MEDS: COLLAGENASE 5 GM TUBE TP SCH (11:09)
[2020-09-26] MEDS: SERTRALINE HCL 50 MG TAB PO SCH (11:55)
[2020-09-26] MEDS: PREDNISONE 5 MG TAB PO SCH (11:55)
[2020-09-26] MEDS: CYANOCOBALAMIN 1,000 MCG TAB PO SCH (11:55)
[2020-09-26] MEDS: PREGABALIN 75 MG CAP PO SCH ×3 (11:55→21:20)
[2020-09-26] MEDS ORDERED: SODIUM CHLORIDE 0.9% 250ML 250 ML IV ONE (13:15)
[2020-09-26] MEDS: RIVAROXABAN 20 MG TABLET PO SCH (17:03)
[2020-09-26] MEDS ORDERED: SODIUM CHLORIDE 0.9% 250ML 250 ML ONE ×3 (18:28→22:54)
[2020-09-26] MEDS: INSULIN GLARGINE 100 UNITS/ML VIAL SQ SCH (21:20)
[2020-09-27] VITALS (8 sets, daily range): BP systolic 142–163; BP diastolic 47–58
[2020-09-27] MEDS: PANTOPRAZOLE 40 MG 10ML VIAL IV SCH ×2 (02:10→12:53)
[2020-09-27 04:48] LABS: BASOPHILS # (AUTO) 0.1 (0.0-0.1); BASOPHILS % 1.2 % (0.0-1.0); EOSINOPHILS # (AUTO) 0.2 (0.0-0.4); EOSINOPHILS % 2.4 % (0.0-6.0); HEMATOCRIT 30.4 % (34.2-44.1); HEMOGLOBIN 9.1 g/dL (12.0-16.0); LYMPHOCYTES # (AUTO) 2.3 (1.0-3.2); LYMPHOCYTES % 27.2 % (18.0-39.1); MEAN CORPUSCULAR HEMOGLOBIN 28.1 pg (28-32); MEAN CORPUSCULAR HGB CONC 29.9 g/dL (31-35); MEAN CORPUSCULAR VOLUME 93.8 fL (81-99); MONOCYTES # (AUTO) 1.1 (0.2-0.8); MONOCYTES % 13.7 % (4.4-11.3); NEUTROPHILS # (AUTO) 4.5 (2.1-6.9); NEUTROPHILS % 53.3 % (38.7-80.0); PLATELET COUNT 93 x10e3/uL (140-360); RED BLOOD COUNT 3.24 x10e6/uL (3.6-5.1); RED CELL DISTRIBUTION WIDTH 16.3 % (11.7-14.4)
[2020-09-27 05:05] LABS: ANION GAP 14.8 mmol/L (8-16); BLOOD UREA NITROGEN 8 mg/dL (7-26); BUN/CREATININE RATIO 9 (6-25); CALCIUM 8.7 mg/dL (8.4-10.2); CARBON DIOXIDE 18 mmol/L (22-29); CHLORIDE 115 mmol/L (98-107); CREATININE, SERUM 0.86 mg/dL (0.57-1.11); EST GLOMERULAR FILTRATION RATE > 60 ML/MIN (60-); GLUCOSE 158 mg/dL (74-118); POTASSIUM 3.8 mmol/L (3.5-5.1); SODIUM 144 mmol/L (136-145)
[2020-09-27] MEDS: MEROPENEM 1GM 100 ML IV SCH ×3 (05:30→22:45)
[2020-09-27] MEDS: VANCOMYCIN HCL 125 MG CAPSULE PO SCH ×2 (05:38→11:14)
[2020-09-27 06:58] LABS: ANISOCYTOSIS SLIGHT; PLATELET ESTIMATE SLIGHTLY DECREASED; PLATELET MORPHOLOGY COMMENT NORMAL; RBC MORPHOLOGY COMMENT NORMAL
[2020-09-27] MEDS ORDERED: SODIUM CHLORIDE 0.9% 50ML 50 ML ONE (07:02)
[2020-09-27] MEDS: INSULIN LISPRO 100 UNIT/1 ML 3ML VIAL SQ SCH ×4 (07:30→20:50)
[2020-09-27] MEDS: PREDNISONE 5 MG TAB PO SCH (08:47)
[2020-09-27] MEDS: FUROSEMIDE 40 MG TAB PO SCH ×2 (08:47→16:18)
[2020-09-27] MEDS: SERTRALINE HCL 50 MG TAB PO SCH (08:47)
[2020-09-27] MEDS: CYANOCOBALAMIN 1,000 MCG TAB PO SCH (08:47)
[2020-09-27] MEDS: PREGABALIN 75 MG CAP PO SCH ×3 (08:47→20:50)
[2020-09-27] MEDS: SUCRALFATE 1 GM/10 ML SUSP NG SCH ×3 (11:12→20:50)
[2020-09-27] MEDS: COLLAGENASE 5 GM TUBE TP SCH (12:30)
[2020-09-27] MEDS: HYDROCODONE/APAP 5MG-325MG TAB PO PRN (15:08)
[2020-09-27] MEDS: RIVAROXABAN 20 MG TABLET PO SCH (16:18)
[2020-09-27] MEDS ORDERED: LIDOCAINE HCL 2% LOCAL INJ 5 ML SDV VIAL INJ ONE (16:57)
[2020-09-27] MEDS ORDERED: PROPOFOL IV EMULSION 10 MG/ML 20 ML VIAL ONE (16:57)
[2020-09-27] MEDS ORDERED: FENTANYL CITRATE/PF 100MCG/2 ML INJ ONE (17:14)
[2020-09-27] MEDS: INSULIN GLARGINE 100 UNITS/ML VIAL SQ SCH (20:50)
[2020-09-28] VITALS (8 sets, daily range): BP systolic 128–149; BP diastolic 42–54
[2020-09-28] MEDS: PANTOPRAZOLE 40 MG 10ML VIAL IV SCH ×2 (01:56→13:42)
[2020-09-28 05:05] LABS: BASOPHILS # (AUTO) 0.1 (0.0-0.1); BASOPHILS % 1.1 % (0.0-1.0); EOSINOPHILS # (AUTO) 0.3 (0.0-0.4); EOSINOPHILS % 3.4 % (0.0-6.0); HEMATOCRIT 29.3 % (34.2-44.1); HEMOGLOBIN 9.3 g/dL (12.0-16.0); LYMPHOCYTES # (AUTO) 2.4 (1.0-3.2); LYMPHOCYTES % 28.3 % (18.0-39.1); MEAN CORPUSCULAR HEMOGLOBIN 27.2 pg (28-32); MEAN CORPUSCULAR HGB CONC 31.7 g/dL (31-35); MEAN CORPUSCULAR VOLUME 85.7 fL (81-99); MONOCYTES # (AUTO) 0.9 (0.2-0.8); MONOCYTES % 10.2 % (4.4-11.3); NEUTROPHILS # (AUTO) 4.6 (2.1-6.9); PLATELET COUNT 216 x10e3/uL (140-360); RED BLOOD COUNT 3.42 x10e6/uL (3.6-5.1)
[2020-09-28] MEDS: MEROPENEM 1GM 100 ML IV SCH ×3 (06:17→21:30)
[2020-09-28] MEDS: INSULIN LISPRO 100 UNIT/1 ML 3ML VIAL SQ SCH ×4 (07:30→21:00)
[2020-09-28] MEDS: SUCRALFATE 1 GM/10 ML SUSP NG SCH ×4 (08:27→21:00)
[2020-09-28] MEDS: CYANOCOBALAMIN 1,000 MCG TAB PO SCH (08:27)
[2020-09-28] MEDS: PREDNISONE 5 MG TAB PO SCH (08:27)
[2020-09-28] MEDS: SERTRALINE HCL 50 MG TAB PO SCH (08:27)
[2020-09-28] MEDS: PREGABALIN 75 MG CAP PO SCH ×3 (08:27→21:00)
[2020-09-28] MEDS: FUROSEMIDE 40 MG TAB PO SCH ×2 (08:27→16:09)
[2020-09-28] MEDS: VANCOMYCIN HCL 125 MG CAPSULE PO SCH ×3 (12:03→23:16)
[2020-09-28] MEDS: COLLAGENASE 5 GM TUBE TP SCH (12:05)
[2020-09-28] MEDS: RIVAROXABAN 20 MG TABLET PO SCH (16:09)
[2020-09-28] MEDS: INSULIN GLARGINE 100 UNITS/ML VIAL SQ SCH (21:00)
[2020-09-29] VITALS (7 sets, daily range): BP systolic 127–153; BP diastolic 41–56
[2020-09-29] MEDS: PANTOPRAZOLE 40 MG 10ML VIAL IV SCH ×2 (01:45→12:30)
[2020-09-29] MEDS: MEROPENEM 1GM 100 ML IV SCH (05:37)
[2020-09-29] MEDS: VANCOMYCIN HCL 125 MG CAPSULE PO SCH ×3 (05:38→16:53)
[2020-09-29 06:43] LABS: BASOPHILS # (AUTO) 0.1 (0.0-0.1); BASOPHILS % 0.7 % (0.0-1.0); EOSINOPHILS # (AUTO) 0.2 (0.0-0.4); EOSINOPHILS % 3.2 % (0.0-6.0); HEMATOCRIT 27.2 % (34.2-44.1); HEMOGLOBIN 8.7 g/dL (12.0-16.0); LYMPHOCYTES # (AUTO) 1.9 (1.0-3.2); LYMPHOCYTES % 26.5 % (18.0-39.1); MEAN CORPUSCULAR HEMOGLOBIN 27.7 pg (28-32); MEAN CORPUSCULAR VOLUME 86.6 fL (81-99); MONOCYTES # (AUTO) 0.7 (0.2-0.8); MONOCYTES % 10.2 % (4.4-11.3); NEUTROPHILS % 57.2 % (38.7-80.0); PLATELET COUNT 242 x10e3/uL (140-360); RED BLOOD COUNT 3.14 x10e6/uL (3.6-5.1); RED CELL DISTRIBUTION WIDTH 16.6 % (11.7-14.4)
[2020-09-29 07:00] LABS: ANION GAP 11.7 mmol/L (8-16); BLOOD UREA NITROGEN 11 mg/dL (7-26); BUN/CREATININE RATIO 14 (6-25); CALCIUM 8.2 mg/dL (8.4-10.2); CARBON DIOXIDE 23 mmol/L (22-29); CHLORIDE 112 mmol/L (98-107); CREATININE, SERUM 0.79 mg/dL (0.57-1.11); EST GLOMERULAR FILTRATION RATE > 60 ML/MIN (60-); GLUCOSE 114 mg/dL (74-118); POTASSIUM 3.7 mmol/L (3.5-5.1); SODIUM 143 mmol/L (136-145)
[2020-09-29] MEDS: INSULIN LISPRO 100 UNIT/1 ML 3ML VIAL SQ SCH ×4 (07:30→21:18)
[2020-09-29] MEDS: SUCRALFATE 1 GM/10 ML SUSP NG SCH ×4 (07:49→21:17)
[2020-09-29] MEDS: PREDNISONE 5 MG TAB PO SCH (07:53)
[2020-09-29] MEDS: FUROSEMIDE 40 MG TAB PO SCH ×2 (07:53→16:53)
[2020-09-29] MEDS: SERTRALINE HCL 50 MG TAB PO SCH (07:53)
[2020-09-29] MEDS: CYANOCOBALAMIN 1,000 MCG TAB PO SCH (07:53)
[2020-09-29] MEDS: PREGABALIN 75 MG CAP PO SCH ×3 (07:53→21:17)
[2020-09-29] MEDS: COLLAGENASE 5 GM TUBE TP SCH (11:37)
[2020-09-29] MEDS: RIVAROXABAN 20 MG TABLET PO SCH (16:53)
[2020-09-29] MEDS: CHOLESTYRAMINE 4 GM PACKET PO SCH (16:58)
[2020-09-29] MEDS: INSULIN GLARGINE 100 UNITS/ML VIAL SQ SCH (21:18)
[2020-09-30] VITALS (9 sets, daily range): BP systolic 131–153; BP diastolic 42–110
[2020-09-30] MEDS: VANCOMYCIN HCL 125 MG CAPSULE PO SCH ×4 (00:24→17:10)
[2020-09-30] MEDS: PANTOPRAZOLE 40 MG 10ML VIAL IV SCH ×2 (02:30→13:03)
[2020-09-30] MEDS: INSULIN LISPRO 100 UNIT/1 ML 3ML VIAL SQ SCH ×4 (07:30→21:00)
[2020-09-30] MEDS: PREGABALIN 75 MG CAP PO SCH ×2 (07:47→17:10)
[2020-09-30] MEDS: PREDNISONE 5 MG TAB PO SCH (07:47)
[2020-09-30] MEDS: SERTRALINE HCL 50 MG TAB PO SCH (07:47)
[2020-09-30] MEDS: FUROSEMIDE 40 MG TAB PO SCH ×2 (07:47→17:10)
[2020-09-30] MEDS: CYANOCOBALAMIN 1,000 MCG TAB PO SCH (07:47)
[2020-09-30] MEDS: SUCRALFATE 1 GM/10 ML SUSP NG SCH ×4 (07:47→21:34)
[2020-09-30] MEDS: CHOLESTYRAMINE 4 GM PACKET PO SCH ×2 (09:00→17:00)
[2020-09-30] MEDS: HYDROCODONE/APAP 5MG-325MG TAB PO PRN ×2 (09:41→21:50)
[2020-09-30] MEDS: COLLAGENASE 5 GM TUBE TP SCH (13:02)
[2020-09-30] MEDS: RIVAROXABAN 20 MG TABLET PO SCH (17:10)
[2020-09-30] MEDS: INSULIN GLARGINE 100 UNITS/ML VIAL SQ SCH (21:00)
[2020-10-01] VITALS (8 sets, daily range): BP systolic 123–157; BP diastolic 44–64
[2020-10-01] MEDS: VANCOMYCIN HCL 125 MG CAPSULE PO SCH ×5 (00:20→23:58)
[2020-10-01] MEDS: INSULIN LISPRO 100 UNIT/1 ML 3ML VIAL SQ SCH ×4 (07:30→21:55)
[2020-10-01] MEDS: FUROSEMIDE 40 MG TAB PO SCH ×2 (10:17→17:37)
[2020-10-01] MEDS: SUCRALFATE 1 GM/10 ML SUSP NG SCH ×4 (10:17→21:55)
[2020-10-01] MEDS: METOCLOPRAMIDE HCL 10 MG TAB PO SCH ×4 (10:17→21:55)
[2020-10-01] MEDS: CHOLESTYRAMINE 4 GM PACKET PO SCH ×2 (10:17→17:37)
[2020-10-01] MEDS: SERTRALINE HCL 50 MG TAB PO SCH (10:17)
[2020-10-01] MEDS: CYANOCOBALAMIN 1,000 MCG TAB PO SCH (10:17)
[2020-10-01] MEDS: PANTOPRAZOLE SOD 40 MG TABEC PO SCH (10:17)
[2020-10-01] MEDS: COLLAGENASE 5 GM TUBE TP SCH (11:00)
[2020-10-01] MEDS: PREGABALIN 75 MG CAP PO SCH ×3 (12:24→21:55)
[2020-10-01] MEDS: INSULIN GLARGINE 100 UNITS/ML VIAL SQ SCH (21:55)
[2020-10-02] VITALS: BP 141/43
[2020-10-02 04:00] VITALS: BP 143/45
[2020-10-02] MEDS: PANTOPRAZOLE SOD 40 MG TABEC PO SCH (06:09)
[2020-10-02] MEDS: SUCRALFATE 1 GM/10 ML SUSP NG SCH ×2 (06:09→12:59)
[2020-10-02] MEDS: VANCOMYCIN HCL 125 MG CAPSULE PO SCH ×2 (06:09→12:59)
[2020-10-02] MEDS: INSULIN LISPRO 100 UNIT/1 ML 3ML VIAL SQ SCH ×2 (07:30→11:30)
[2020-10-02 07:41] VITALS: BP 130/65
[2020-10-02 07:44] VITALS: BP 130/65
[2020-10-02] MEDS: METOCLOPRAMIDE HCL 10 MG TAB PO SCH ×2 (08:35→12:59)
[2020-10-02] MEDS: PREGABALIN 75 MG CAP PO SCH ×2 (08:35→14:14)
[2020-10-02] MEDS: SERTRALINE HCL 50 MG TAB PO SCH (08:35)
[2020-10-02] MEDS: CYANOCOBALAMIN 1,000 MCG TAB PO SCH (08:35)
[2020-10-02] MEDS: FUROSEMIDE 40 MG TAB PO SCH (08:35)
[2020-10-02] MEDS: CHOLESTYRAMINE 4 GM PACKET PO SCH (08:35)
[2020-10-02] MEDS ORDERED: CHOLESTYRAMINE L4 GM PO (09:19)
[2020-10-02] MEDS ORDERED: VANCOMYCIN HCL125 MG PO (09:19)
[2020-10-02] MEDS ORDERED: METOCLOPRAMIDE10 MG PO (09:19)
[2020-10-02] MEDS: HYDROCODONE/APAP 5MG-325MG TAB PO PRN (10:02)
[2020-10-02 11:53] VITALS: BP 112/51
[2020-10-02] MEDS: COLLAGENASE 5 GM TUBE TP SCH (14:44)
[2020-10-02 16:15] VITALS: BP 128/56
== END 2020-10-02 16:43 | disposition home or self-care (01) | DRG 592 ==
LOC: ER 12:13 → ERHOLD 17:33 → MED/SURG3 20:29
PROVIDERS: ADMIT Internal Medicine; ATTEND Internal Medicine
PROC: 30233N1 Transfusion of Nonautologous Red Blood Cells into Peripheral Vein, Percutaneous Approach (ICD-10-PCS; principal; 2020-09-26)
PROC: 0DB78ZX Excision of Stomach, Pylorus, Via Natural or Artificial Opening Endoscopic, Diagnostic (ICD-10-PCS; 2020-09-27)
PROC: 02HV33Z Insertion of Infusion Device into Superior Vena Cava, Percutaneous Approach (ICD-10-PCS; 2020-09-29)
DX: L89.154 Pressure ulcer of sacral region, stage 4 (principal); G93.41 Metabolic encephalopathy; A09 Infectious gastroenteritis and colitis, unspecified; T83.511A Infection and inflammatory reaction due to indwelling urethral catheter, initial encounter; N39.0 Urinary tract infection, site not specified; I69.351 Hemiplegia and hemiparesis following cerebral infarction affecting right dominant side; Z16.12 Extended spectrum beta lactamase (ESBL) resistance; I50.32 Chronic diastolic (congestive) heart failure; M79.7 Fibromyalgia; I25.10 Atherosclerotic heart disease of native coronary artery without angina pectoris; Z74.01 Bed confinement status; F01.50 Vascular dementia, unspecified severity, without behavioral disturbance, psychotic disturbance, mood disturbance, and anxiety; Z20.822 Contact with and (suspected) exposure to COVID-19; F32.9 Major depressive disorder, single episode, unspecified; K21.9 Gastro-esophageal reflux disease without esophagitis; E66.9 Obesity, unspecified; Z68.34 Body mass index [BMI] 34.0-34.9, adult; E11.40 Type 2 diabetes mellitus with diabetic neuropathy, unspecified; B96.5 Pseudomonas (aeruginosa) (mallei) (pseudomallei) as the cause of diseases classified elsewhere; D63.8 Anemia in other chronic diseases classified elsewhere; B96.1 Klebsiella pneumoniae [K. pneumoniae] as the cause of diseases classified elsewhere; B96.4 Proteus (mirabilis) (morganii) as the cause of diseases classified elsewhere; D69.6 Thrombocytopenia, unspecified; I11.0 Hypertensive heart disease with heart failure; Z86.718 Personal history of other venous thrombosis and embolism; Z79.01 Long term (current) use of anticoagulants
CPT/HCPCS: 36415; 36569; 43239; 70450; 70491; 71045; 74177; 74230; 80048; 80053; 80202; 81001; 82550; 82553; 82607; 82728; 82746; 82948; 83540; 83690; 83735; 83880; 83993; 84443; 84466; 84484; 85025; 85045; 85610; 85730; 86850; 86900; 86920; 87040; 87045; 87071; 87086; 87177; 87186; 87205; 87328; 87493; 88305; 88312; 88342; 93005; 93971; 96372; 97139; 99251; 99285; J1815; J1940; J2001; J2405; J2543; J3010; J3370; J7030; J7040; J7050; J7512; P9016; Q9967; U0002

== ENCOUNTER 2020-10-28 21:20 | Inpatient (IN) | payer MEDICARE ==
[~2020-10-28] VITALS: Ht 167.6 cm; Wt 95.7 kg
[~2020-10-28 21:20] MED LIST changes: +AUGMENTIN 875-1 EACH PO; +B-121000 MCG PO; +CHOLESTYRAMINE L4 GM PO; +FUROSEMIDE40 MG PO; +HYDRALAZINE HCL25 MG PO; +HYDROCODON-ACE1 EA11 PO; +INSULIN LI100 UNIT/2 SC; +METOCLOPRAMIDE10 MG PO; +PANTOPRAZOLE SO40 MG PO; +POLYETHYLENE GL17 GM PO; +PREDNISONE5 MG PO; +SANTYL 250 UNIT/GM TOP; +SERTRALINE HCL50 MG PO; +VANCOMYCIN HCL125 MG PO; +XARELTO20 MG PO; +ZYVOX600 MG PO
[2020-10-28 22:40] LABS: BASOPHILS # (AUTO) 0.1 (0.0-0.1); BASOPHILS % 0.6 % (0.0-1.0); EOSINOPHILS # (AUTO) 0.2 (0.0-0.4); EOSINOPHILS % 1.3 % (0.0-6.0); HEMATOCRIT 29.6 % (34.2-44.1); HEMOGLOBIN 8.9 g/dL (12.0-16.0); LYMPHOCYTES # (AUTO) 2.5 (1.0-3.2); LYMPHOCYTES % 20.9 % (18.0-39.1); MEAN CORPUSCULAR HEMOGLOBIN 27.1 pg (28-32); MEAN CORPUSCULAR HGB CONC 30.1 g/dL (31-35); MONOCYTES # (AUTO) 0.7 (0.2-0.8); MONOCYTES % 6.1 % (4.4-11.3); NEUTROPHILS # (AUTO) 8.4 (2.1-6.9); NEUTROPHILS % 70.5 % (38.7-80.0); PLATELET COUNT 315 x10e3/uL (140-360); RED BLOOD COUNT 3.29 x10e6/uL (3.6-5.1)
[2020-10-28 22:53] LABS: ALBUMIN/GLOBULIN RATIO 0.3 (0.8-2.0); ANION GAP 14.2 mmol/L (8-16); CALCIUM 8.3 mg/dL (8.4-10.2); CREATININE, SERUM 0.94 mg/dL (0.57-1.11); POTASSIUM 4.2 mmol/L (3.5-5.1)
[2020-10-28 23:42] LABS: CREATINE KINASE MB 1.2 ng/mL (0-5.0)
[2020-10-29] MEDS ORDERED: SODIUM CHLORIDE 0.9% 50ML 50 ML ONE (00:11)
[2020-10-29] MEDS ORDERED: IOPAMIDOL 370 MG/ML 200 ML INFUS..BTL INJ ONE (00:12)
[2020-10-29 00:42] LABS: CLARITY,URINE CLOUDY (CLEAR); COLOR,URINE YELLOW (YELLOW); KETONES,URINE NEGATIVE (NEGATIVE); LEUKOCYTE ESTERASE ,URINE 2+ (NEGATIVE); NITRITE,URINE POSITIVE (NEGATIVE); PROTEIN,URINE DIPSTICK NEGATIVE (NEGATIVE); URINE UROBILINOGEN 0.2 mg/dL (0.2 - 1)
[2020-10-29 00:53] LABS: BACTERIA,URINE MANY /HPF; EPITHELIAL CELLS,URINE FEW /LPF; RBC,URINE >50 /HPF (0-5); RENAL EPITHELIAL CELLS,URINE MANY; WBC,URINE (MAN) >50 /HPF (0-5)
[2020-10-29] MEDS ORDERED: Vancomycin IV 1 GM in SODIUM CHLORIDE 0.9% 250ML 250 ML IV STA (01:43)
[2020-10-29] MEDS: CEFEPIME 1 GM in SODIUM CHLORIDE 0.9% 50ML 50 ML IV SCH ×2 (02:00→14:00)
[2020-10-29] MEDS ORDERED: SODIUM CHLORIDE 0.9% 500ML 500 ML ONE (03:30)
[2020-10-29] MEDS ORDERED: SODIUM CHLORIDE 0.9% 500ML 500 ML IV ONE (03:30)
[2020-10-29] MEDS ORDERED: CLOTRIMAZOLE15 GM TOP (12:44)
[2020-10-29] MEDS ORDERED: NOVOLOG100 UNIT/1 SC (12:44)
[2020-10-29] MEDS ORDERED: ALDACTONE50 MG PO (12:44)
[2020-10-29] MEDS ORDERED: OMEPRAZOLE40 MG PO (12:44)
[2020-10-29] MEDS ORDERED: METFORMIN HCL500 MG PO (12:44)
[2020-10-29] MEDS ORDERED: ATORVASTATIN CA20 MG PO (12:44)
[2020-10-29] MEDS ORDERED: ASPIRIN81 MG PO (12:44)
[2020-10-29] MEDS ORDERED: POTASSIUM CHLO10 ME1 PO (12:44)
[2020-10-29] MEDS ORDERED: MUPIROCIN22 GM TOP (12:44)
[2020-10-29] MEDS ORDERED: METFORMIN HCL1000 MG PO (12:44)
[2020-10-29] MEDS ORDERED: LEVOCETIRIZINE D5 MG PO (12:44)
[2020-10-29] MEDS ORDERED: SERTRALINE HCL100 MG PO (12:44)
[2020-10-29] MEDS ORDERED: AMLODIPINE BESYL5 MG PO (12:44)
[2020-10-29] MEDS ORDERED: JARDIANCE10 MG PO (12:44)
[2020-10-29] MEDS ORDERED: FLONASE ALLERG9.9 ML INH (12:44)
[2020-10-29] MEDS ORDERED: WOMEN'S 50 PLU1 EACH PO (12:44)
[2020-10-29] MEDS ORDERED: ACETAMINOPHEN325 M1 PO (12:44)
[2020-10-29] MEDS ORDERED: LEVEMIR100 UNIT/1 SC (12:44)
[2020-10-29] MEDS ORDERED: SENNA LAXATIVE8.6 MG PO (12:44)
[2020-10-29] MEDS ORDERED: SODIUM CHLORIDE 0.9% 250ML 250 ML ONE (13:11)
[2020-10-29] MEDS ORDERED: DEXTROSE 50% SYRINGE 50 ML IV PRN ×2 (14:15)
[2020-10-29] MEDS ORDERED: INSULIN REGULAR, HUMAN 100 UNIT/1 ML SQ SCH (16:30)
[2020-10-29] MEDS: INSULIN LISPRO 100 UNIT/1 ML 3ML VIAL SQ SCH ×2 (16:30→21:00)
[2020-10-29] MEDS ORDERED: ATORVASTATIN 20 MG TAB ONE (22:04)
[2020-10-29] MEDS ORDERED: ATORVASTATIN 40 MG TAB ONE (22:04)
[2020-10-29] MEDS ORDERED: FUROSEMIDE 40 MG TAB ONE (22:18)
[2020-10-30] MEDS: INSULIN LISPRO 100 UNIT/1 ML 3ML VIAL SQ SCH ×4 (07:30→21:21)
[2020-10-30 08:00] VITALS: BP 125/67
[2020-10-30] MEDS ORDERED: ASPIRIN 81 MG ENTERIC COATED PO ONE (08:25)
[2020-10-30] MEDS ORDERED: PREGABALIN 75 MG CAP ONE (08:27)
[2020-10-30] MEDS ORDERED: OMEPRAZOLE 20 MG CAP ONE (08:27)
[2020-10-30] MEDS ORDERED: SERTRALINE HCL 100 MG TAB ONE (08:28)
[2020-10-30] MEDS ORDERED: FUROSEMIDE 40 MG TAB ONE (08:29)
[2020-10-30] MEDS ORDERED: POTASSIUM CHLORIDE 10MEQ EA ONE (08:30)
[2020-10-30] MEDS: ASPIRIN 81 MG CHEW TAB PO SCH (09:15)
[2020-10-30] MEDS ORDERED: SENNA-S TABLET PO PRN (09:30)
[2020-10-30] MEDS: PREGABALIN 75 MG CAP PO SCH ×2 (09:45→21:17)
[2020-10-30] MEDS: FUROSEMIDE 40 MG TAB PO SCH ×2 (10:00→21:17)
[2020-10-30] MEDS: FLUTICASONE PROPIONATE NASAL SPRAY NS SCH ×2 (10:00→16:30)
[2020-10-30] MEDS: POTASSIUM CHLORIDE 10MEQ EA PO SCH (10:00)
[2020-10-30] MEDS: OMEPRAZOLE 20 MG CAP PO SCH (10:00)
[2020-10-30] MEDS: SERTRALINE HCL 100 MG TAB PO SCH (10:00)
[2020-10-30 12:00] VITALS: BP 123/43
[2020-10-30] MEDS: COLLAGENASE 5 GM TUBE TP SCH (13:00)
[2020-10-30] MEDS: BALSAM PERU/CASTOR OIL 60 GM OINT...G. TP SCH (13:00)
[2020-10-30] MEDS: CEFEPIME 1 GM in SODIUM CHLORIDE 0.9% 50ML 50 ML IV SCH (14:00)
[2020-10-30 15:04] LABS: BASOPHILS # (AUTO) 0.1 (0.0-0.1); BASOPHILS % 0.5 % (0.0-1.0); EOSINOPHILS # (AUTO) 0.2 (0.0-0.4); EOSINOPHILS % 1.4 % (0.0-6.0); HEMATOCRIT 28.6 % (34.2-44.1); HEMOGLOBIN 8.6 g/dL (12.0-16.0); LYMPHOCYTES # (AUTO) 2.2 (1.0-3.2); LYMPHOCYTES % 17.7 % (18.0-39.1); MEAN CORPUSCULAR HGB CONC 30.1 g/dL (31-35); MEAN CORPUSCULAR VOLUME 89.7 fL (81-99); MONOCYTES # (AUTO) 0.9 (0.2-0.8); MONOCYTES % 7.3 % (4.4-11.3); NEUTROPHILS % 72.5 % (38.7-80.0); PLATELET COUNT 320 x10e3/uL (140-360); RED BLOOD COUNT 3.19 x10e6/uL (3.6-5.1); RED CELL DISTRIBUTION WIDTH 17.9 % (11.7-14.4)
[2020-10-30 15:20] LABS: ANION GAP 13.3 mmol/L (8-16); CREATININE, SERUM 1.9 mg/dL (0.57-1.11); POTASSIUM 4.3 mmol/L (3.5-5.1)
[2020-10-30 15:54] VITALS: BP 144/46
[2020-10-30] MEDS: ENOXAPARIN SOD INJ 40 MG/0.4 ML SYR SC SCH (16:30)
[2020-10-30 19:40] VITALS: BP 166/43
[2020-10-30] MEDS: LORATADINE 10 MG TAB PO SCH (21:17)
[2020-10-30] MEDS: ATORVASTATIN 40 MG TAB PO SCH (21:17)
[2020-10-30] MEDS: INSULIN GLARGINE 100 UNITS/ML VIAL SQ SCH (21:21)
[2020-10-30 21:28] VITALS: BP 166/43
[2020-10-30] MEDS: ACETAMINOPHEN 325 MG TAB PO PRN (22:45)
[2020-10-31] VITALS (8 sets, daily range): BP systolic 108–139; BP diastolic 40–44
[2020-10-31] MEDS: CEFEPIME 1 GM in SODIUM CHLORIDE 0.9% 50ML 50 ML IV SCH ×2 (01:34→14:22)
[2020-10-31 06:14] LABS: BASOPHILS # (AUTO) 0.1 (0.0-0.1); BASOPHILS % 0.9 % (0.0-1.0); EOSINOPHILS # (AUTO) 0.3 (0.0-0.4); EOSINOPHILS % 3.2 % (0.0-6.0); HEMATOCRIT 25.5 % (34.2-44.1); HEMOGLOBIN 7.7 g/dL (12.0-16.0); LYMPHOCYTES # (AUTO) 2.6 (1.0-3.2); MEAN CORPUSCULAR HEMOGLOBIN 26.9 pg (28-32); MEAN CORPUSCULAR HGB CONC 30.2 g/dL (31-35); MEAN CORPUSCULAR VOLUME 89.2 fL (81-99); MONOCYTES # (AUTO) 0.7 (0.2-0.8); MONOCYTES % 7.5 % (4.4-11.3); NEUTROPHILS # (AUTO) 5.2 (2.1-6.9); NEUTROPHILS % 58.8 % (38.7-80.0); PLATELET COUNT 303 x10e3/uL (140-360); RED BLOOD COUNT 2.86 x10e6/uL (3.6-5.1)
[2020-10-31 06:53] LABS: ANION GAP 10.8 mmol/L (8-16); CALCIUM 7.7 mg/dL (8.4-10.2); CREATININE, SERUM 2.32 mg/dL (0.57-1.11); POTASSIUM 3.8 mmol/L (3.5-5.1)
[2020-10-31] MEDS: INSULIN LISPRO 100 UNIT/1 ML 3ML VIAL SQ SCH ×4 (07:30→20:53)
[2020-10-31] MEDS: FLUTICASONE PROPIONATE NASAL SPRAY NS SCH ×2 (09:00→17:00)
[2020-10-31] MEDS: ASPIRIN 81 MG CHEW TAB PO SCH (09:17)
[2020-10-31] MEDS: PREGABALIN 75 MG CAP PO SCH ×2 (09:18→20:24)
[2020-10-31] MEDS: POTASSIUM CHLORIDE 10MEQ EA PO SCH (09:19)
[2020-10-31] MEDS: FUROSEMIDE 40 MG TAB PO SCH (09:20)
[2020-10-31] MEDS: OMEPRAZOLE 20 MG CAP PO SCH (09:21)
[2020-10-31] MEDS: SERTRALINE HCL 100 MG TAB PO SCH (09:21)
[2020-10-31] MEDS: COLLAGENASE 5 GM TUBE TP SCH (11:56)
[2020-10-31] MEDS: BALSAM PERU/CASTOR OIL 60 GM OINT...G. TP SCH (11:56)
[2020-10-31] MEDS: MORPHINE SULFATE INJ 2 MG/ML SYR IV PRN ×2 (14:22→20:37)
[2020-10-31] MEDS: ENOXAPARIN SOD INJ 40 MG/0.4 ML SYR SC SCH (16:37)
[2020-10-31 18:32] LABS: INR 1.11
[2020-10-31] MEDS ORDERED: SODIUM HYPOCHLORITE 0.25% 480 ML SOLN IR ONE (18:55)
[2020-10-31] MEDS: ATORVASTATIN 40 MG TAB PO SCH (20:23)
[2020-10-31] MEDS: LORATADINE 10 MG TAB PO SCH (20:23)
[2020-10-31] MEDS: INSULIN GLARGINE 100 UNITS/ML VIAL SQ SCH (20:47)
[2020-11-01] VITALS (8 sets, daily range): BP systolic 98–136; BP diastolic 35–47
[2020-11-01 06:51] LABS: ANION GAP 10.8 mmol/L (8-16); CALCIUM 7.9 mg/dL (8.4-10.2); CREATININE, SERUM 2.17 mg/dL (0.57-1.11); POTASSIUM 3.8 mmol/L (3.5-5.1)
[2020-11-01] MEDS: INSULIN LISPRO 100 UNIT/1 ML 3ML VIAL SQ SCH ×4 (07:30→21:00)
[2020-11-01] MEDS: SERTRALINE HCL 100 MG TAB PO SCH (09:00)
[2020-11-01] MEDS: POTASSIUM CHLORIDE 10MEQ EA PO SCH (09:00)
[2020-11-01] MEDS: LACTOBACILLUS ACIDOPHILUS CAPSULE PO SCH (09:00)
[2020-11-01] MEDS: ASPIRIN 81 MG CHEW TAB PO SCH (09:00)
[2020-11-01] MEDS: PREGABALIN 75 MG CAP PO SCH ×2 (09:00→21:00)
[2020-11-01] MEDS: OMEPRAZOLE 20 MG CAP PO SCH (09:00)
[2020-11-01] MEDS: BALSAM PERU/CASTOR OIL 60 GM OINT...G. TP SCH (09:10)
[2020-11-01] MEDS: COLLAGENASE 5 GM TUBE TP SCH (09:10)
[2020-11-01] MEDS: CEFEPIME 1 GM in SODIUM CHLORIDE 0.9% 50ML 50 ML IV SCH (09:51)
[2020-11-01] MEDS: FLUTICASONE PROPIONATE NASAL SPRAY NS SCH ×2 (09:51→18:05)
[2020-11-01] MEDS ORDERED: MIDAZOLAM HCL 2 MG/2 ML VIAL ONE (15:03)
[2020-11-01] MEDS ORDERED: FENTANYL CITRATE/PF 100MCG/2 ML INJ ONE (15:03)
[2020-11-01] MEDS ORDERED: LIDOCAINE HCL 1% LOCAL INJ 20 ML VIAL ONE (15:03)
[2020-11-01] MEDS ORDERED: SODIUM CHLORIDE 0.9% 250ML 250 ML ONE (15:22)
[2020-11-01] MEDS ORDERED: POTASSIUM CHLORIDE 20MEQ/100ML 100 ML IV ONE (16:00)
[2020-11-01] MEDS: RIVAROXABAN 20 MG TABLET PO SCH (18:08)
[2020-11-01] MEDS: HYDROCODONE/APAP 5MG-325MG TAB PO PRN (18:36)
[2020-11-01] MEDS: LORATADINE 10 MG TAB PO SCH (21:00)
[2020-11-01] MEDS: ATORVASTATIN 40 MG TAB PO SCH (21:00)
[2020-11-01] MEDS: INSULIN GLARGINE 100 UNITS/ML VIAL SQ SCH (21:00)
[2020-11-01] MEDS: METOCLOPRAMIDE HCL 10 MG/2ML VIAL IV SCH (21:00)
[2020-11-02] VITALS (8 sets, daily range): BP systolic 101–138; BP diastolic 35–92
[2020-11-02 06:06] LABS: ANION GAP 11.4 mmol/L (8-16); CREATININE, SERUM 1.8 mg/dL (0.57-1.11); MAGNESIUM 1.4 MG/DL (1.3-2.1); POTASSIUM 4.4 mmol/L (3.5-5.1)
[2020-11-02] MEDS: METOCLOPRAMIDE HCL 10 MG/2ML VIAL IV SCH ×4 (07:30→21:00)
[2020-11-02] MEDS: INSULIN LISPRO 100 UNIT/1 ML 3ML VIAL SQ SCH ×4 (07:30→21:00)
[2020-11-02] MEDS: FLUTICASONE PROPIONATE NASAL SPRAY NS SCH ×2 (10:01→17:00)
[2020-11-02] MEDS: CEFEPIME 1 GM in SODIUM CHLORIDE 0.9% 50ML 50 ML IV SCH (10:01)
[2020-11-02] MEDS: PREGABALIN 75 MG CAP PO SCH ×2 (10:02→21:00)
[2020-11-02] MEDS: POTASSIUM CHLORIDE 10MEQ EA PO SCH (10:02)
[2020-11-02] MEDS: OMEPRAZOLE 20 MG CAP PO SCH (10:02)
[2020-11-02] MEDS: ASPIRIN 81 MG CHEW TAB PO SCH (10:02)
[2020-11-02] MEDS: BALSAM PERU/CASTOR OIL 60 GM OINT...G. TP SCH (10:03)
[2020-11-02] MEDS: LACTOBACILLUS ACIDOPHILUS CAPSULE PO SCH (10:03)
[2020-11-02] MEDS: SERTRALINE HCL 100 MG TAB PO SCH (10:03)
[2020-11-02] MEDS: COLLAGENASE 5 GM TUBE TP SCH (10:03)
[2020-11-02] MEDS: HYDROCODONE/APAP 5MG-325MG TAB PO PRN (10:04)
[2020-11-02] MEDS: MORPHINE SULFATE INJ 2 MG/ML SYR IV PRN (12:00)
[2020-11-02] MEDS: MEROPENEM 500 MG in SODIUM CHLORIDE 0.9% 50ML 50 ML IV SCH (16:00)
[2020-11-02] MEDS: RIVAROXABAN 20 MG TABLET PO SCH (17:00)
[2020-11-02] MEDS ORDERED: Vancomycin IV 1 GM in SODIUM CHLORIDE 0.9% 250ML 250 ML IV ONE ×2 (17:45→21:00)
[2020-11-02] MEDS: MAGNESIUM SULF 1GRAM/DEXTROSE 100 ML IV SCH ×3 (18:18→20:00)
[2020-11-02] MEDS: INSULIN GLARGINE 100 UNITS/ML VIAL SQ SCH (21:00)
[2020-11-02] MEDS: LORATADINE 10 MG TAB PO SCH (21:00)
[2020-11-02] MEDS: ATORVASTATIN 40 MG TAB PO SCH (21:00)
[2020-11-03] VITALS (8 sets, daily range): BP systolic 106–135; BP diastolic 40–65
[2020-11-03] MEDS: MORPHINE SULFATE INJ 2 MG/ML SYR IV PRN ×2 (00:10→16:28)
[2020-11-03] MEDS: ACETAMINOPHEN 325 MG TAB PO PRN ×2 (00:11→21:25)
[2020-11-03] MEDS: HYDROCODONE/APAP 5MG-325MG TAB PO PRN (03:25)
[2020-11-03] MEDS: MEROPENEM 500 MG in SODIUM CHLORIDE 0.9% 50ML 50 ML IV SCH ×2 (04:00→16:35)
[2020-11-03 06:28] LABS: BASOPHILS # (AUTO) 0.1 (0.0-0.1); BASOPHILS % 0.8 % (0.0-1.0); EOSINOPHILS # (AUTO) 0.3 (0.0-0.4); EOSINOPHILS % 2.7 % (0.0-6.0); HEMATOCRIT 24.6 % (34.2-44.1); HEMOGLOBIN 7.2 g/dL (12.0-16.0); LYMPHOCYTES # (AUTO) 2.9 (1.0-3.2); LYMPHOCYTES % 28.9 % (18.0-39.1); MEAN CORPUSCULAR HEMOGLOBIN 26.6 pg (28-32); MEAN CORPUSCULAR HGB CONC 29.3 g/dL (31-35); MEAN CORPUSCULAR VOLUME 90.8 fL (81-99); MONOCYTES # (AUTO) 0.7 (0.2-0.8); MONOCYTES % 7.1 % (4.4-11.3); NEUTROPHILS # (AUTO) 5.9 (2.1-6.9); NEUTROPHILS % 59.9 % (38.7-80.0); PLATELET COUNT 353 x10e3/uL (140-360); RED BLOOD COUNT 2.71 x10e6/uL (3.6-5.1); RED CELL DISTRIBUTION WIDTH 17.4 % (11.7-14.4)
[2020-11-03 06:40] LABS: CALCIUM 7.7 mg/dL (8.4-10.2); CREATININE, SERUM 1.34 mg/dL (0.57-1.11)
[2020-11-03] MEDS: INSULIN LISPRO 100 UNIT/1 ML 3ML VIAL SQ SCH ×4 (07:30→21:00)
[2020-11-03] MEDS: ASPIRIN 81 MG CHEW TAB PO SCH (08:23)
[2020-11-03] MEDS: PREGABALIN 75 MG CAP PO SCH ×2 (08:24→21:24)
[2020-11-03] MEDS: SERTRALINE HCL 100 MG TAB PO SCH (08:27)
[2020-11-03] MEDS: LACTOBACILLUS ACIDOPHILUS CAPSULE PO SCH (08:27)
[2020-11-03] MEDS: POTASSIUM CHLORIDE 10MEQ EA PO SCH (08:30)
[2020-11-03] MEDS: FLUTICASONE PROPIONATE NASAL SPRAY NS SCH ×2 (08:30→16:19)
[2020-11-03] MEDS: METOCLOPRAMIDE HCL 10 MG/2ML VIAL IV SCH ×4 (08:30→21:24)
[2020-11-03] MEDS: RIVAROXABAN 20 MG TABLET PO SCH (16:19)
[2020-11-03] MEDS: BALSAM PERU/CASTOR OIL 60 GM OINT...G. TP SCH (17:03)
[2020-11-03] MEDS: COLLAGENASE 5 GM TUBE TP SCH (17:03)
[2020-11-03] MEDS: INSULIN GLARGINE 100 UNITS/ML VIAL SQ SCH (21:00)
[2020-11-03] MEDS: LORATADINE 10 MG TAB PO SCH (21:24)
[2020-11-03] MEDS: ATORVASTATIN 40 MG TAB PO SCH (21:24)
[2020-11-04] VITALS (7 sets, daily range): BP systolic 121–174; BP diastolic 30–55
[2020-11-04] MEDS: MEROPENEM 500 MG in SODIUM CHLORIDE 0.9% 50ML 50 ML IV SCH ×2 (03:41→16:29)
[2020-11-04] MEDS: INSULIN LISPRO 100 UNIT/1 ML 3ML VIAL SQ SCH ×4 (07:30→21:04)
[2020-11-04] MEDS: METOCLOPRAMIDE HCL 10 MG/2ML VIAL IV SCH ×4 (08:35→21:02)
[2020-11-04] MEDS: ASPIRIN 81 MG CHEW TAB PO SCH (08:35)
[2020-11-04] MEDS: FLUTICASONE PROPIONATE NASAL SPRAY NS SCH ×2 (08:35→16:29)
[2020-11-04] MEDS: PREGABALIN 75 MG CAP PO SCH ×2 (08:36→21:02)
[2020-11-04] MEDS: BALSAM PERU/CASTOR OIL 60 GM OINT...G. TP SCH (08:36)
[2020-11-04] MEDS: SERTRALINE HCL 100 MG TAB PO SCH (08:36)
[2020-11-04] MEDS: LACTOBACILLUS ACIDOPHILUS CAPSULE PO SCH (08:36)
[2020-11-04] MEDS: COLLAGENASE 5 GM TUBE TP SCH (08:36)
[2020-11-04] MEDS: POTASSIUM CHLORIDE 10MEQ EA PO SCH (08:36)
[2020-11-04] MEDS ORDERED: VANCOMYCIN 1GM/NS 250 ML 250 ML IV SCH (09:00)
[2020-11-04] MEDS: MORPHINE SULFATE INJ 2 MG/ML SYR IV PRN (10:14)
[2020-11-04] MEDS: Vancomycin IV 1 GM in SODIUM CHLORIDE 0.9% 250ML 250 ML IV SCH (12:02)
[2020-11-04] MEDS: ACETAMINOPHEN 325 MG TAB PO PRN ×2 (13:32→17:37)
[2020-11-04] MEDS: RIVAROXABAN 20 MG TABLET PO SCH (16:29)
[2020-11-04] MEDS: ATORVASTATIN 40 MG TAB PO SCH (21:02)
[2020-11-04] MEDS: LORATADINE 10 MG TAB PO SCH (21:02)
[2020-11-04] MEDS: INSULIN GLARGINE 100 UNITS/ML VIAL SQ SCH (21:04)
[2020-11-05] VITALS (7 sets, daily range): BP systolic 110–150; BP diastolic 37–56
[2020-11-05] MEDS: MEROPENEM 500 MG in SODIUM CHLORIDE 0.9% 50ML 50 ML IV SCH ×2 (04:49→16:38)
[2020-11-05 05:50] LABS: ANION GAP 9.3 mmol/L (8-16); CALCIUM 8.2 mg/dL (8.4-10.2); CREATININE, SERUM 0.96 mg/dL (0.57-1.11); POTASSIUM 4.3 mmol/L (3.5-5.1)
[2020-11-05] MEDS: INSULIN LISPRO 100 UNIT/1 ML 3ML VIAL SQ SCH ×4 (07:30→21:00)
[2020-11-05] MEDS: FLUTICASONE PROPIONATE NASAL SPRAY NS SCH ×2 (09:19→16:38)
[2020-11-05] MEDS: ASPIRIN 81 MG CHEW TAB PO SCH (09:19)
[2020-11-05] MEDS: METOCLOPRAMIDE HCL 10 MG/2ML VIAL IV SCH ×4 (09:19→21:00)
[2020-11-05] MEDS: SERTRALINE HCL 100 MG TAB PO SCH (09:20)
[2020-11-05] MEDS: COLLAGENASE 5 GM TUBE TP SCH (09:20)
[2020-11-05] MEDS: LACTOBACILLUS ACIDOPHILUS CAPSULE PO SCH (09:20)
[2020-11-05] MEDS: Vancomycin IV 1 GM in SODIUM CHLORIDE 0.9% 250ML 250 ML IV SCH (09:20)
[2020-11-05] MEDS: POTASSIUM CHLORIDE 10MEQ EA PO SCH (09:20)
[2020-11-05] MEDS: BALSAM PERU/CASTOR OIL 60 GM OINT...G. TP SCH (09:20)
[2020-11-05] MEDS: PREGABALIN 75 MG CAP PO SCH ×2 (09:20→21:00)
[2020-11-05] MEDS: LINEZOLID 600 MG/D5W 300ML 300 ML IV SCH (13:45)
[2020-11-05] MEDS: MORPHINE SULFATE INJ 2 MG/ML SYR IV PRN (14:39)
[2020-11-05] MEDS: RIVAROXABAN 20 MG TABLET PO SCH (16:38)
[2020-11-05] MEDS: HYDROCODONE/APAP 5MG-325MG TAB PO PRN (20:32)
[2020-11-05] MEDS: LORATADINE 10 MG TAB PO SCH (21:00)
[2020-11-05] MEDS: ATORVASTATIN 40 MG TAB PO SCH (21:00)
[2020-11-05] MEDS: INSULIN GLARGINE 100 UNITS/ML VIAL SQ SCH (21:00)
[2020-11-06] VITALS (8 sets, daily range): BP systolic 90–156; BP diastolic 31–65
[2020-11-06] MEDS: LINEZOLID 600 MG/D5W 300ML 300 ML IV SCH ×2 (00:06→11:37)
[2020-11-06 01:41] LABS: IRON 16 ug/dL (50-170); TRANSFERRIN < 70 mg/dL (180-382)
[2020-11-06 02:01] LABS: FERRITIN 407.22 ng/mL (4.63-204.00)
[2020-11-06] MEDS: MEROPENEM 500 MG in SODIUM CHLORIDE 0.9% 50ML 50 ML IV SCH ×2 (04:00→16:19)
[2020-11-06 06:38] LABS: BASOPHILS # (AUTO) 0.1 (0.0-0.1); BASOPHILS % 0.8 % (0.0-1.0); EOSINOPHILS # (AUTO) 0.3 (0.0-0.4); EOSINOPHILS % 2.8 % (0.0-6.0); HEMATOCRIT 24.5 % (34.2-44.1); HEMOGLOBIN 7.1 g/dL (12.0-16.0); LYMPHOCYTES # (AUTO) 2.9 (1.0-3.2); LYMPHOCYTES % 26.2 % (18.0-39.1); MEAN CORPUSCULAR HEMOGLOBIN 26.9 pg (28-32); MEAN CORPUSCULAR VOLUME 92.8 fL (81-99); MONOCYTES # (AUTO) 0.7 (0.2-0.8); MONOCYTES % 6.6 % (4.4-11.3); NEUTROPHILS # (AUTO) 6.9 (2.1-6.9); NEUTROPHILS % 63.1 % (38.7-80.0); PLATELET COUNT 361 x10e3/uL (140-360); RED BLOOD COUNT 2.64 x10e6/uL (3.6-5.1); RED CELL DISTRIBUTION WIDTH 16.9 % (11.7-14.4)
[2020-11-06 06:45] LABS: ALBUMIN 1.4 g/dL (3.5-5.0); ALBUMIN/GLOBULIN RATIO 0.3 (0.8-2.0); ANION GAP 7.4 mmol/L (8-16); CALCIUM 7.9 mg/dL (8.4-10.2); CREATININE, SERUM 0.85 mg/dL (0.57-1.11); POTASSIUM 4.4 mmol/L (3.5-5.1)
[2020-11-06] MEDS: INSULIN LISPRO 100 UNIT/1 ML 3ML VIAL SQ SCH ×4 (07:30→21:00)
[2020-11-06] MEDS: METOCLOPRAMIDE HCL 10 MG/2ML VIAL IV SCH ×4 (08:37→21:00)
[2020-11-06] MEDS: IRON SUCROSE 100 MG in SODIUM CHLORIDE 0.9% 100 ML 100 ML IV SCH (08:37)
[2020-11-06] MEDS: POTASSIUM CHLORIDE 10MEQ EA PO SCH (08:38)
[2020-11-06] MEDS: LACTOBACILLUS ACIDOPHILUS CAPSULE PO SCH (08:38)
[2020-11-06] MEDS: PREGABALIN 75 MG CAP PO SCH (08:38)
[2020-11-06] MEDS: SERTRALINE HCL 100 MG TAB PO SCH (08:38)
[2020-11-06] MEDS: FLUTICASONE PROPIONATE NASAL SPRAY NS SCH ×2 (08:38→16:19)
[2020-11-06] MEDS: ASPIRIN 81 MG CHEW TAB PO SCH (08:38)
[2020-11-06] MEDS: BALSAM PERU/CASTOR OIL 60 GM OINT...G. TP SCH (08:39)
[2020-11-06] MEDS: COLLAGENASE 5 GM TUBE TP SCH (08:39)
[2020-11-06] MEDS: MORPHINE SULFATE INJ 2 MG/ML SYR IV PRN (11:37)
[2020-11-06] MEDS ORDERED: SODIUM CHLORIDE 0.9% 250ML 250 ML IV ONE (12:30)
[2020-11-06] MEDS ORDERED: MEROPENEM 500 MG VIAL ONE (16:09)
[2020-11-06] MEDS: RIVAROXABAN 20 MG TABLET PO SCH (16:19)
[2020-11-06] MEDS: LORATADINE 10 MG TAB PO SCH (21:00)
[2020-11-06] MEDS: INSULIN GLARGINE 100 UNITS/ML VIAL SQ SCH (21:00)
[2020-11-06] MEDS: ATORVASTATIN 40 MG TAB PO SCH (21:00)
[2020-11-06] MEDS: HYDROCODONE/APAP 5MG-325MG TAB PO PRN (21:11)
[2020-11-07] VITALS: BP 141/47
[2020-11-07] MEDS ORDERED: SODIUM CHLORIDE 0.9% 500ML 500 ML ONE (00:55)
[2020-11-07] MEDS: LINEZOLID 600 MG/D5W 300ML 300 ML IV SCH ×2 (01:00→13:01)
[2020-11-07] MEDS: MEROPENEM 500 MG in SODIUM CHLORIDE 0.9% 50ML 50 ML IV SCH ×2 (03:36→15:51)
[2020-11-07 05:06] VITALS: BP 153/49
[2020-11-07 05:30] LABS: BASOPHILS # (AUTO) 0.1 (0.0-0.1); BASOPHILS % 0.8 % (0.0-1.0); EOSINOPHILS # (AUTO) 0.3 (0.0-0.4); HEMATOCRIT 26.1 % (34.2-44.1); HEMOGLOBIN 7.8 g/dL (12.0-16.0); LYMPHOCYTES # (AUTO) 2.5 (1.0-3.2); LYMPHOCYTES % 26.6 % (18.0-39.1); MEAN CORPUSCULAR HEMOGLOBIN 27.2 pg (28-32); MEAN CORPUSCULAR HGB CONC 29.9 g/dL (31-35); MEAN CORPUSCULAR VOLUME 90.9 fL (81-99); MONOCYTES # (AUTO) 0.6 (0.2-0.8); MONOCYTES % 5.8 % (4.4-11.3); NEUTROPHILS % 63.4 % (38.7-80.0); PLATELET COUNT 326 x10e3/uL (140-360); RED BLOOD COUNT 2.87 x10e6/uL (3.6-5.1); RED CELL DISTRIBUTION WIDTH 16.8 % (11.7-14.4)
[2020-11-07 05:54] LABS: INR 1.85; PROTHROMBIN TIME 22.3 seconds (11.9-14.5)
[2020-11-07] MEDS: INSULIN LISPRO 100 UNIT/1 ML 3ML VIAL SQ SCH ×3 (07:30→16:30)
[2020-11-07 07:56] VITALS: BP 121/52
[2020-11-07] MEDS: METOCLOPRAMIDE HCL 10 MG/2ML VIAL IV SCH ×2 (08:30→11:53)
[2020-11-07 08:37] VITALS: BP 150/49
[2020-11-07] MEDS: IRON SUCROSE 100 MG in SODIUM CHLORIDE 0.9% 100 ML 100 ML IV SCH (09:34)
[2020-11-07] MEDS: FLUTICASONE PROPIONATE NASAL SPRAY NS SCH ×2 (09:41→17:09)
[2020-11-07] MEDS: ASPIRIN 81 MG CHEW TAB PO SCH (10:30)
[2020-11-07] MEDS: POTASSIUM CHLORIDE 10MEQ EA PO SCH (10:30)
[2020-11-07] MEDS: LACTOBACILLUS ACIDOPHILUS CAPSULE PO SCH (10:30)
[2020-11-07] MEDS: SERTRALINE HCL 100 MG TAB PO SCH (10:30)
[2020-11-07 12:19] VITALS: BP 128/55
[2020-11-07] MEDS ORDERED: SENNA LAXATIVE8.6 MG PO (13:00)
[2020-11-07] MEDS ORDERED: XARELTO20 MG PO (13:00)
[2020-11-07] MEDS ORDERED: PANTOPRAZOLE SO40 MG PO (13:00)
[2020-11-07] MEDS ORDERED: CIPRO500 MG PO (13:00)
[2020-11-07] MEDS ORDERED: POTASSIUM CHLO10 ME1 PO (13:00)
[2020-11-07] MEDS: COLLAGENASE 5 GM TUBE TP SCH (13:00)
[2020-11-07] MEDS ORDERED: FUROSEMIDE40 MG PO (13:00)
[2020-11-07] MEDS ORDERED: JARDIANCE10 MG PO (13:00)
[2020-11-07] MEDS ORDERED: ZYVOX600 MG PO (13:00)
[2020-11-07] MEDS ORDERED: REGLAN5 MG PO (13:00)
[2020-11-07] MEDS ORDERED: LYRICA75 MG PO (13:00)
[2020-11-07] MEDS: BALSAM PERU/CASTOR OIL 60 GM OINT...G. TP SCH (13:00)
[2020-11-07] MEDS ORDERED: SERTRALINE HCL100 MG PO (13:00)
[2020-11-07] MEDS ORDERED: NIFEDIPINE ER30 M1 PO (13:00)
[2020-11-07] MEDS ORDERED: LEVOCETIRIZINE D5 MG PO (13:00)
[2020-11-07] MEDS: MORPHINE SULFATE INJ 2 MG/ML SYR IV PRN (15:15)
[2020-11-07 15:56] VITALS: BP 95/49
[2020-11-07] MEDS ORDERED: METOCLOPRAMIDE HCL 10 MG TAB PO SCH (16:30)
[2020-11-07] MEDS: RIVAROXABAN 20 MG TABLET PO SCH (17:00)
[2020-11-07] MEDS ORDERED: PANTOPRAZOLE SOD 40 MG TABEC PO SCH (21:00)
== END 2020-11-07 19:38 | disposition home health service (06) | DRG 871 ==
LOC: ER 22:04 → ERHOLD 10-29 06:26 → MED/SURG3 10-29 07:32
PROVIDERS: ADMIT Internal Medicine; ATTEND Internal Medicine
PROC: 0JH63XZ Insertion of Tunneled Vascular Access Device into Chest Subcutaneous Tissue and Fascia, Percutaneous Approach (ICD-10-PCS; principal; 2020-11-01)
PROC: 02HV33Z Insertion of Infusion Device into Superior Vena Cava, Percutaneous Approach (ICD-10-PCS; 2020-11-01)
PROC: B5181ZA Fluoroscopy of Superior Vena Cava using Low Osmolar Contrast, Guidance (ICD-10-PCS; 2020-11-01)
PROC: 30243N1 Transfusion of Nonautologous Red Blood Cells into Central Vein, Percutaneous Approach (ICD-10-PCS; 2020-11-06)
DX: A41.9 Sepsis, unspecified organism (principal); L89.154 Pressure ulcer of sacral region, stage 4; M86.18 Other acute osteomyelitis, other site; T83.511A Infection and inflammatory reaction due to indwelling urethral catheter, initial encounter; I50.30 Unspecified diastolic (congestive) heart failure; I69.351 Hemiplegia and hemiparesis following cerebral infarction affecting right dominant side; I13.0 Hypertensive heart and chronic kidney disease with heart failure and stage 1 through stage 4 chronic kidney disease, or unspecified chronic kidney disease; N18.4 Chronic kidney disease, stage 4 (severe); N30.00 Acute cystitis without hematuria; I82.721 Chronic embolism and thrombosis of deep veins of right upper extremity; M33.90 Dermatopolymyositis, unspecified, organ involvement unspecified; N17.9 Acute kidney failure, unspecified; Z16.22 Resistance to vancomycin related antibiotics; R65.20 Severe sepsis without septic shock; I69.320 Aphasia following cerebral infarction; E11.22 Type 2 diabetes mellitus with diabetic chronic kidney disease; Z90.49 Acquired absence of other specified parts of digestive tract; Z88.2 Allergy status to sulfonamides; Z88.8 Allergy status to other drugs, medicaments and biological substances; E78.5 Hyperlipidemia, unspecified; E11.42 Type 2 diabetes mellitus with diabetic polyneuropathy; Z74.01 Bed confinement status; F03.90 Unspecified dementia, unspecified severity, without behavioral disturbance, psychotic disturbance, mood disturbance, and anxiety; R53.81 Other malaise; L89.620 Pressure ulcer of left heel, unstageable; L89.610 Pressure ulcer of right heel, unstageable; E83.42 Hypomagnesemia; B96.5 Pseudomonas (aeruginosa) (mallei) (pseudomallei) as the cause of diseases classified elsewhere; B96.1 Klebsiella pneumoniae [K. pneumoniae] as the cause of diseases classified elsewhere; E11.43 Type 2 diabetes mellitus with diabetic autonomic (poly)neuropathy; K31.84 Gastroparesis; D50.9 Iron deficiency anemia, unspecified; B96.89 Other specified bacterial agents as the cause of diseases classified elsewhere; Z20.822 Contact with and (suspected) exposure to COVID-19; Z79.82 Long term (current) use of aspirin; Z79.4 Long term (current) use of insulin
CPT/HCPCS: 36415; 36558; 71045; 74177; 74470; 76937; 77001; 80048; 80053; 80202; 81001; 82550; 82553; 82607; 82728; 82746; 82948; 83540; 83605; 83735; 83880; 84466; 84484; 85025; 85045; 85610; 86850; 86900; 86920; 87040; 87071; 87086; 87186; 87205; 87493; 93005; 96367; 96372; 96375; 96376; 97139; 99251; J0692; J1650; J1756; J1815; J1817; J2001; J2020; J2185; J2250; J2270; J2765; J3010; J3370; J3475; J3480; J7040; J7050; J7799; P9016; Q9967; U0002

== ENCOUNTER 2020-11-19 18:28 | Inpatient (IN) | payer MEDICARE ==
[~2020-11-19] VITALS: Ht 167.6 cm; Wt 97.0 kg
[~2020-11-19 18:28] MED LIST changes: +CIPRO500 MG PO; +CLOTRIMAZOLE15 GM TOP; +JARDIANCE10 MG PO; +LEVEMIR100 UNIT/1 SC; +METFORMIN HCL1000 MG PO; +REGLAN5 MG PO; +SENNA LAXATIVE8.6 MG PO; +WOMEN'S 50 PLU1 EACH PO
[2020-11-19] MEDS ORDERED: CEFEPIME 1 GM in SODIUM CHLORIDE 0.9% 50ML 50 ML IV ONE (20:00)
[2020-11-19] MEDS ORDERED: ACETAMINOPHEN 325 MG TAB PO ONE (20:30)
[2020-11-19 20:45] LABS: BASOPHILS # (AUTO) 0.2 (0.0-0.1); BASOPHILS % 0.9 % (0.0-1.0); EOSINOPHILS # (AUTO) 0.2 (0.0-0.4); HEMOGLOBIN 9.7 g/dL (12.0-16.0); LYMPHOCYTES # (AUTO) 0.8 (1.0-3.2); MEAN CORPUSCULAR HEMOGLOBIN 27.9 pg (28-32); MEAN CORPUSCULAR HGB CONC 31.3 g/dL (31-35); MEAN CORPUSCULAR VOLUME 89.1 fL (81-99); MONOCYTES # (AUTO) 0.4 (0.2-0.8); MONOCYTES % 1.9 % (4.4-11.3); NEUTROPHILS # (AUTO) 19.2 (2.1-6.9); NEUTROPHILS % 91.3 % (38.7-80.0); PLATELET COUNT 287 x10e3/uL (140-360); RED BLOOD COUNT 3.48 x10e6/uL (3.6-5.1); RED CELL DISTRIBUTION WIDTH 17.1 % (11.7-14.4)
[2020-11-19 20:56] LABS: CLARITY,URINE CLOUDY (CLEAR); COLOR,URINE YELLOW (YELLOW); KETONES,URINE NEGATIVE (NEGATIVE); LEUKOCYTE ESTERASE ,URINE MODERATE (NEGATIVE); NITRITE,URINE NEGATIVE (NEGATIVE); PROTEIN,URINE DIPSTICK 1+ (NEGATIVE); URINE UROBILINOGEN 0.2 mg/dL (0.2 - 1)
[2020-11-19 21:00] LABS: ALBUMIN 2.1 g/dL (3.5-5.0); ALBUMIN/GLOBULIN RATIO 0.3 (0.8-2.0); ANION GAP 16.8 mmol/L (8-16); CREATININE, SERUM 1.1 mg/dL (0.57-1.11)
[2020-11-19] MEDS ORDERED: SODIUM CHLORIDE 0.9% 1000ML 1,000 ML IV ONE (21:00)
[2020-11-19 21:01] LABS: POTASSIUM 2.8 mmol/L (3.5-5.1)
[2020-11-19] MEDS ORDERED: POTASSIUM CHLORIDE 20MEQ/100ML 100 ML IV STA (21:01)
[2020-11-19 21:06] LABS: CREATINE KINASE MB 0.6 ng/mL (0-5.0)
[2020-11-19 21:07] LABS: AMORPHOUS SEDIMENT,URINE MODERATE (FEW); BACTERIA,URINE MODERATE /HPF; EPITHELIAL CELLS,URINE FEW /LPF
[2020-11-19 21:08] LABS: YEAST,URINE MODERATE
[2020-11-19] MEDS ORDERED: SODIUM CHLORIDE 0.9% 50ML 50 ML ONE (21:44)
[2020-11-19] MEDS ORDERED: IOPAMIDOL 370 MG/ML 200 ML INFUS..BTL INJ ONE (21:44)
[2020-11-19] MEDS ORDERED: VANCOMYCIN 1GM/NS 250 ML 250 ML IV ONE (21:45)
[2020-11-19] MEDS: CEFEPIME 1 GM in SODIUM CHLORIDE 0.9% 50ML 50 ML IV SCH (22:00)
[2020-11-19] MEDS ORDERED: IBUPROFEN 600 MG TAB PO STA (22:56)
[2020-11-19] MEDS ORDERED: IBUPROFEN 600 MG TAB ONE (23:07)
[2020-11-19] MEDS ORDERED: Vancomycin IV 1 GM VIAL ONE (23:14)
[2020-11-19] MEDS ORDERED: SODIUM CHLORIDE 0.9% 250ML 250 ML ONE (23:15)
[2020-11-20] MEDS ORDERED: SODIUM CHLORIDE 0.9% 1000ML 1,000 ML IV ONE
[2020-11-20] MEDS ORDERED: SODIUM CHLORIDE 0.9% 1000ML 1,000 ML IV SCH (00:30)
[2020-11-20] MEDS ORDERED: DEXTROSE 50% SYRINGE 50 ML IV PRN (01:00)
[2020-11-20] MEDS ORDERED: ONDANSETRON HCL INJ 2MG/ML 2ML 2 MG/ML VIAL IV PRN (01:00)
[2020-11-20] MEDS ORDERED: ACETAMINOPHEN 325 MG TAB PO PRN (01:00)
[2020-11-20] MEDS: METRONIDAZOLE 500MG/NS 100ML 100 ML IV SCH ×3 (01:03→12:47)
[2020-11-20] MEDS: NOREPINEPHRINE 8 MG/D5W 250 ML 250 ML IV SCH (02:15)
[2020-11-20] MEDS: CEFEPIME 1 GM in SODIUM CHLORIDE 0.9% 50ML 50 ML IV SCH (06:00)
[2020-11-20] MEDS ORDERED: LACTATED RINGER'S 1,000 ML INJ ONE (06:15)
[2020-11-20] MEDS ORDERED: LINEZOLID 600 MG TAB PO SCH (06:15)
[2020-11-20] MEDS ORDERED: SENNOSIDES 8.6 MG TAB PO PRN (06:15)
[2020-11-20] MEDS ORDERED: LINEZOLID 600 MG/D5W 300ML 300 ML IV SCH (06:30)
[2020-11-20 07:11] LABS: CREATINE KINASE MB 0.9 ng/mL (0-5.0)
[2020-11-20] MEDS: INSULIN REGULAR, HUMAN 100 UNIT/1 ML SQ SCH ×4 (07:30→21:00)
[2020-11-20] MEDS ORDERED: SERTRALINE HCL 100 MG TAB PO SCH (09:00)
[2020-11-20] MEDS ORDERED: PANTOPRAZOLE SOD 40 MG TABEC PO SCH (09:00)
[2020-11-20] MEDS: ASPIRIN 81 MG CHEW TAB PO SCH (09:36)
[2020-11-20] MEDS: RIVAROXABAN 20 MG TABLET PO SCH (09:36)
[2020-11-20] MEDS ORDERED: SODIUM HYPOCHLORITE 0.5% 480 ML BTL IR NR (11:15)
[2020-11-20] MEDS: VANCOMYCIN 250MG/5ML ORAL SOLN PO SCH ×2 (12:00→18:00)
[2020-11-20 12:06] LABS: BASOPHILS # (AUTO) 0.2 (0.0-0.1); BASOPHILS % 1.1 % (0.0-1.0); EOSINOPHILS # (AUTO) 0.6 (0.0-0.4); HEMATOCRIT 28.1 % (34.2-44.1); HEMOGLOBIN 8.4 g/dL (12.0-16.0); LYMPHOCYTES # (AUTO) 1.6 (1.0-3.2); LYMPHOCYTES % 11.3 % (18.0-39.1); MEAN CORPUSCULAR HEMOGLOBIN 28.1 pg (28-32); MEAN CORPUSCULAR HGB CONC 29.9 g/dL (31-35); MONOCYTES # (AUTO) 0.5 (0.2-0.8); MONOCYTES % 3.2 % (4.4-11.3); NEUTROPHILS # (AUTO) 11.4 (2.1-6.9); NEUTROPHILS % 79.7 % (38.7-80.0); PLATELET COUNT 163 x10e3/uL (140-360); RED BLOOD COUNT 2.99 x10e6/uL (3.6-5.1); RED CELL DISTRIBUTION WIDTH 17.7 % (11.7-14.4)
[2020-11-20 13:16] LABS: ANION GAP 13.1 mmol/L (8-16); CREATININE, SERUM 1.08 mg/dL (0.57-1.11); POTASSIUM 3.1 mmol/L (3.5-5.1)
[2020-11-20 14:34] LABS: CREATINE KINASE MB 1.5 ng/mL (0-5.0)
[2020-11-20] MEDS ORDERED: MAGNESIUM SULFATE 2GM/50ML 50 ML IV ONE (17:15)
[2020-11-20] MEDS ORDERED: POTASSIUM CHLORIDE 10MEQ EA PO ONE (17:30)
[2020-11-20] MEDS: SERTRALINE HCL 100 MG TAB PO SCH (21:00)
[2020-11-20] MEDS: INSULIN GLARGINE 100 UNITS/ML VIAL SC SCH (21:00)
[2020-11-20] MEDS ORDERED: MORPHINE SULFATE INJ 2 MG/ML SYR IV PRN (23:00)
[2020-11-21] MEDS: NOREPINEPHRINE 8 MG/D5W 250 ML 250 ML IV SCH (02:15)
[2020-11-21] MEDS: INSULIN REGULAR, HUMAN 100 UNIT/1 ML SQ SCH ×5 (05:07→21:30)
[2020-11-21] MEDS: VANCOMYCIN 250MG/5ML ORAL SOLN PO SCH ×4 (05:08→17:43)
[2020-11-21 06:30] LABS: BASOPHILS # (AUTO) 0.1 (0.0-0.1); BASOPHILS % 0.7 % (0.0-1.0); EOSINOPHILS # (AUTO) 0.4 (0.0-0.4); EOSINOPHILS % 4.6 % (0.0-6.0); HEMATOCRIT 23.1 % (34.2-44.1); HEMOGLOBIN 7.3 g/dL (12.0-16.0); LYMPHOCYTES # (AUTO) 1.6 (1.0-3.2); LYMPHOCYTES % 17.8 % (18.0-39.1); MEAN CORPUSCULAR HEMOGLOBIN 28.3 pg (28-32); MEAN CORPUSCULAR HGB CONC 31.6 g/dL (31-35); MEAN CORPUSCULAR VOLUME 89.5 fL (81-99); MONOCYTES # (AUTO) 0.4 (0.2-0.8); MONOCYTES % 4.5 % (4.4-11.3); NEUTROPHILS # (AUTO) 6.6 (2.1-6.9); NEUTROPHILS % 72.1 % (38.7-80.0); PLATELET COUNT 159 x10e3/uL (140-360); RED BLOOD COUNT 2.58 x10e6/uL (3.6-5.1); RED CELL DISTRIBUTION WIDTH 17.9 % (11.7-14.4)
[2020-11-21 06:47] LABS: ALBUMIN 1.6 g/dL (3.5-5.0); ALBUMIN/GLOBULIN RATIO 0.3 (0.8-2.0); ANION GAP 11.3 mmol/L (8-16); CALCIUM 7.1 mg/dL (8.4-10.2); CREATININE, SERUM 1.01 mg/dL (0.57-1.11); POTASSIUM 3.3 mmol/L (3.5-5.1)
[2020-11-21] MEDS ORDERED: OYST-CAL-D 500MG TABLET PO ONE (08:00)
[2020-11-21] MEDS ORDERED: POTASSIUM CHLORIDE 10MEQ EA PO ONE (08:00)
[2020-11-21] MEDS: ASPIRIN 81 MG CHEW TAB PO SCH (09:04)
[2020-11-21] MEDS: RIVAROXABAN 20 MG TABLET PO SCH (09:04)
[2020-11-21] MEDS: SERTRALINE HCL 100 MG TAB PO SCH (09:04)
[2020-11-21] MEDS ORDERED: MAGNESIUM SULF 1GRAM/DEXTROSE 100 ML IV ONE (09:45)
[2020-11-21 10:15] VITALS: BP 99/38
[2020-11-21 10:48] VITALS: BP 99/38
[2020-11-21] MEDS: ACETAMINOPHEN 325 MG TAB PO PRN (19:21)
[2020-11-21 20:00] VITALS: BP 151/48
[2020-11-21 21:00] VITALS: BP 151/48
[2020-11-21] MEDS: INSULIN GLARGINE 100 UNITS/ML VIAL SC SCH (21:30)
[2020-11-21 23:49] VITALS: BP 155/48
[2020-11-22] VITALS (7 sets, daily range): BP systolic 133–164; BP diastolic 41–70
[2020-11-22] MEDS: VANCOMYCIN 250MG/5ML ORAL SOLN PO SCH ×4 (00:08→17:18)
[2020-11-22] MEDS: NOREPINEPHRINE 8 MG/D5W 250 ML 250 ML IV SCH (02:15)
[2020-11-22 04:59] LABS: BASOPHILS # (AUTO) 0.1 (0.0-0.1); EOSINOPHILS # (AUTO) 0.4 (0.0-0.4); EOSINOPHILS % 5.2 % (0.0-6.0); HEMATOCRIT 24.6 % (34.2-44.1); HEMOGLOBIN 7.5 g/dL (12.0-16.0); LYMPHOCYTES # (AUTO) 2.1 (1.0-3.2); LYMPHOCYTES % 31.2 % (18.0-39.1); MEAN CORPUSCULAR HEMOGLOBIN 27.6 pg (28-32); MEAN CORPUSCULAR HGB CONC 30.5 g/dL (31-35); MEAN CORPUSCULAR VOLUME 90.4 fL (81-99); MONOCYTES # (AUTO) 0.5 (0.2-0.8); MONOCYTES % 7.8 % (4.4-11.3); NEUTROPHILS # (AUTO) 3.7 (2.1-6.9); NEUTROPHILS % 54.5 % (38.7-80.0); PLATELET COUNT 172 x10e3/uL (140-360); RED BLOOD COUNT 2.72 x10e6/uL (3.6-5.1); RED CELL DISTRIBUTION WIDTH 17.9 % (11.7-14.4)
[2020-11-22 05:20] LABS: ANION GAP 11.5 mmol/L (8-16); CALCIUM 7.9 mg/dL (8.4-10.2); CREATININE, SERUM 0.82 mg/dL (0.57-1.11); MAGNESIUM 1.4 MG/DL (1.3-2.1); POTASSIUM 3.5 mmol/L (3.5-5.1)
[2020-11-22] MEDS: INSULIN REGULAR, HUMAN 100 UNIT/1 ML SQ SCH ×5 (07:30→20:44)
[2020-11-22] MEDS: ASPIRIN 81 MG CHEW TAB PO SCH (09:41)
[2020-11-22] MEDS: SERTRALINE HCL 100 MG TAB PO SCH (09:41)
[2020-11-22] MEDS: RIVAROXABAN 20 MG TABLET PO SCH (09:41)
[2020-11-22] MEDS ORDERED: MAGNESIUM SULF 1GRAM/DEXTROSE 100 ML IV ONE (12:30)
[2020-11-22] MEDS ORDERED: POTASSIUM CHLORIDE 10MEQ EA PO ONE (12:30)
[2020-11-22] MEDS: INSULIN GLARGINE 100 UNITS/ML VIAL SC SCH (20:44)
[2020-11-22] MEDS: ACETAMINOPHEN 325 MG TAB PO PRN (21:50)
[2020-11-23] VITALS (7 sets, daily range): BP systolic 133–181; BP diastolic 45–59
[2020-11-23] MEDS: PREGABALIN 75 MG CAP PO SCH ×3 (03:35→17:00)
[2020-11-23] MEDS: VANCOMYCIN 250MG/5ML ORAL SOLN PO SCH ×4 (05:08→18:00)
[2020-11-23 06:27] LABS: BASOPHILS # (AUTO) 0.1 (0.0-0.1); BASOPHILS % 0.9 % (0.0-1.0); EOSINOPHILS # (AUTO) 0.4 (0.0-0.4); HEMATOCRIT 24.3 % (34.2-44.1); HEMOGLOBIN 7.3 g/dL (12.0-16.0); LYMPHOCYTES # (AUTO) 2.3 (1.0-3.2); LYMPHOCYTES % 33.2 % (18.0-39.1); MEAN CORPUSCULAR HEMOGLOBIN 27.4 pg (28-32); MEAN CORPUSCULAR VOLUME 91.4 fL (81-99); MONOCYTES # (AUTO) 0.7 (0.2-0.8); MONOCYTES % 9.8 % (4.4-11.3); NEUTROPHILS # (AUTO) 3.6 (2.1-6.9); NEUTROPHILS % 50.8 % (38.7-80.0); PLATELET COUNT 151 x10e3/uL (140-360); RED BLOOD COUNT 2.66 x10e6/uL (3.6-5.1); RED CELL DISTRIBUTION WIDTH 17.8 % (11.7-14.4)
[2020-11-23 06:35] LABS: ANION GAP 12.5 mmol/L (8-16); CALCIUM 8.2 mg/dL (8.4-10.2); CREATININE, SERUM 0.71 mg/dL (0.57-1.11); POTASSIUM 3.5 mmol/L (3.5-5.1)
[2020-11-23] MEDS: INSULIN REGULAR, HUMAN 100 UNIT/1 ML SQ SCH ×3 (07:30→16:30)
[2020-11-23] MEDS: ASPIRIN 81 MG CHEW TAB PO SCH (08:42)
[2020-11-23] MEDS: SERTRALINE HCL 100 MG TAB PO SCH (08:42)
[2020-11-23] MEDS: RIVAROXABAN 20 MG TABLET PO SCH (08:42)
[2020-11-23] MEDS ORDERED: FOSFOMYCIN TROMETHAMINE 3 GM PACKET PO NR (11:45)
[2020-11-23] MEDS ORDERED: FUROSEMIDE40 MG PO (15:40)
== END 2020-11-23 22:06 | disposition hospice, home (50) | DRG 871 ==
LOC: ER 19:35 → ERHOLD 11-20 01:40 → MED/SURG2 11-21 09:35
PROVIDERS: ADMIT Internal Medicine; ATTEND Internal Medicine
PROC: 3E043XZ Introduction of Vasopressor into Central Vein, Percutaneous Approach (ICD-10-PCS; principal; 2020-11-20)
DX: A41.9 Sepsis, unspecified organism (principal); L89.154 Pressure ulcer of sacral region, stage 4; R65.21 Severe sepsis with septic shock; N17.9 Acute kidney failure, unspecified; N39.0 Urinary tract infection, site not specified; M46.28 Osteomyelitis of vertebra, sacral and sacrococcygeal region; K52.1 Toxic gastroenteritis and colitis; I69.351 Hemiplegia and hemiparesis following cerebral infarction affecting right dominant side; I13.0 Hypertensive heart and chronic kidney disease with heart failure and stage 1 through stage 4 chronic kidney disease, or unspecified chronic kidney disease; M33.10 Other dermatomyositis, organ involvement unspecified; A04.72 Enterocolitis due to Clostridium difficile, not specified as recurrent; Z16.24 Resistance to multiple antibiotics; N18.31 Chronic kidney disease, stage 3a; I50.9 Heart failure, unspecified; Z87.440 Personal history of urinary (tract) infections; Z74.01 Bed confinement status; Z90.49 Acquired absence of other specified parts of digestive tract; Z88.2 Allergy status to sulfonamides; Z88.8 Allergy status to other drugs, medicaments and biological substances; E87.6 Hypokalemia; Z79.84 Long term (current) use of oral hypoglycemic drugs; T36.95XA Adverse effect of unspecified systemic antibiotic, initial encounter; Z86.718 Personal history of other venous thrombosis and embolism; E11.649 Type 2 diabetes mellitus with hypoglycemia without coma; E11.22 Type 2 diabetes mellitus with diabetic chronic kidney disease; N18.30 Chronic kidney disease, stage 3 unspecified; E11.69 Type 2 diabetes mellitus with other specified complication; E11.42 Type 2 diabetes mellitus with diabetic polyneuropathy; E66.9 Obesity, unspecified; E83.42 Hypomagnesemia; L89.312 Pressure ulcer of right buttock, stage 2; L89.610 Pressure ulcer of right heel, unstageable; Z20.822 Contact with and (suspected) exposure to COVID-19; Z68.34 Body mass index [BMI] 34.0-34.9, adult
CPT/HCPCS: 36415; 71045; 74177; 80048; 80053; 81001; 82550; 82553; 82948; 83605; 83735; 84484; 85025; 87040; 87045; 87086; 87177; 87186; 87328; 87493; 93005; 96372; 99284; J0692; J2020; J3370; J3475; J3480; J7030; J7050; J7121; Q9967; U0002